=== PATIENT | female | born 1965 | race Caucasian/White ===

== ENCOUNTER 2016-09-27 17:45 | Inpatient (IN) | payer BC ==
[~2016-09-27] VITALS: Ht 154.9 cm; Wt 88.2 kg
[2016-09-27] MEDS ORDERED: SOD CHLORIDE 0.9% 1,000 ML IV STA (18:33)
[2016-09-27] MEDS ORDERED: ONDANSETRON 4 MG INJ IV STA (18:33)
[2016-09-27] MEDS ORDERED: morphine 4 MG/ML VIAL IV STA (18:33)
[2016-09-27] MEDS ORDERED: KETOROLAC 30 MG INJ IV STA (19:14)
[2016-09-27 19:21] LABS: ADD SCAN DIFF NO
[2016-09-27 19:31] LABS: BASOPHILS % 0.2 % (0.0-2.0); EOSINOPHILS % 0.1 % (0.0-7.0); HEMATOCRIT 44.7 % (37.0-47.0); HEMOGLOBIN 15.1 g/dl (12.0-16.0); LYMPHOCYTES # 0.7 10^3/ul (0.8-2.9); LYMPHOCYTES % 6.2 % (15.0-51.0); MEAN CORPUSCULAR HEMOGLOBIN 29.7 pg (29.0-33.0); MEAN CORPUSCULAR HGB CONC 33.8 g/dl (32.0-37.0); MEAN PLATELET VOLUME 9.5 fl (7.4-10.4); MONOCYTE # 0.7 10^3/ul (0.3-0.9); MONOCYTES % 6.2 % (0.0-11.0); NEUTROPHIL # 10.3 10^3/ul (1.6-7.5); PLATELET COUNT 359 10^3/UL (140-415); RED BLOOD COUNT 5.08 10^6/ul (4.20-5.40); RED CELL DISTRIBUTION WIDTH 12.4 % (11.5-14.5); WHITE BLOOD COUNT 11.8 10^3/ul (4.8-10.8)
--- NOTE | 2016-09-27 19:31 | RADRPT ---
PROCEDURE: Right Upper Quadrant Ultrasound. CLINICAL INDICATION: Abdominal Pain TECHNIQUE: Multiple real-time images were acquired of the patient's right upper quadrant abdomen a nd retroperitoneum utilizing a high resolution transducer. COMPARISON: None FINDINGS: The liver measures 16.3 cm, and demonstrates normal echogenicity. The main portal vein is patent wit h proper directional flow. There is no intrahepatic biliary ductal dilatation. The extrahepatic comm on bile duct measures 3 mm. There is cholelithiasis. There is no gallbladder wall thickening or pericholecystic fluid. The visualized pancreas is unremarkable. The right kidney measures 11.0 x 4.7 x 4.9 cm and demonstrates normal echotexture. There is no right renal calculus or hydronephrosis. The visualized abdominal aorta and IVC are grossly unremarkable. IMPRESSION: Mild hepatomegaly. Cholelithiasis without evidence of acute cholecystitis. Normal CBD. RPTAT: EE Physician Simin Date Time Electronically viewed and signed by Physician Simin on 09/27/2016 19:31 /
[2016-09-27 19:40] LABS: ADD UMIC YES; URINE BILIRUBIN (Dip) 1+ (NEGATIVE); URINE BLOOD (Dip) NEGATIVE (NEGATIVE); URINE COLOR AMBER (YELLOW); URINE GLUCOSE (Dip) NEGATIVE (NEGATIVE); URINE KETONES (Dip) 15 (NEGATIVE); URINE LEUKOCYTE ESTERASE (Dip) NEGATIVE (NEGATIVE); URINE NITRITE (Dip) NEGATIVE (NEGATIVE); URINE TOTAL PROTEIN (Dip) 1+ (NEGATIVE); URINE UROBILINOGEN (Dip) 1.0 E.U./dL (0.1-1.0)
[2016-09-27 19:46] LABS: ALBUMIN 4.9 g/dl (3.3-4.9)
[2016-09-27 19:47] LABS: CHLORIDE 99 mmol/L (97-110); POTASSIUM 3.8 mmol/L (3.5-5.1); SODIUM 142 mmol/L (135-144)
[2016-09-27] MEDS ORDERED: HYDROmorphONE 1 MG/ML SYG IV STA (19:47)
[2016-09-27 19:49] LABS: ALBUMIN/GLOBULIN RATIO 1.36; ALKALINE PHOSPHATASE 154 IU/L (42-121); ANION GAP 21 (8-16); BILIRUBIN,INDIRECT 2.9 mg/dl (0-1.1); BILIRUBIN,TOTAL 3.7 mg/dl (0.2-1.3); BLOOD UREA NITROGEN 11 mg/dl (7-20); CARBON DIOXIDE 26 mmol/L (21-31); CREATININE 0.73 mg/dl (0.44-1.00); TOTAL PROTEIN 8.5 g/dl (6.1-8.1)
[2016-09-27 19:50] LABS: ALANINE AMINOTRANSFERASE 875 IU/L (13-69); CALCIUM 9.7 mg/dl (8.4-10.2); GLUCOSE 173 mg/dl (70-220)
[2016-09-27 20:00] LABS: TROPONIN-I < 0.012 ng/ml (0.00-0.12)
[2016-09-27 20:11] LABS: ICTOTEST POSITIVE (NEGATIVE)
[2016-09-27 20:12] LABS: SQUAMOUS EPITHELIAL CELL,UR FEW; URINE RBCS NONE SEEN /HPF (0)
[2016-09-27 20:33] LABS: ASPARTATE AMINO TRANSFERASE 1187 IU/L (15-46)
--- NOTE | 2016-09-27 21:04 | RADRPT ---
PROCEDURE: CT abdomen and pelvis without contrast. CLINICAL INDICATION: Abdominal pain, vomiting TECHNIQUE: CT scan of the abdomen and pelvis without contrast was performed. The patient was scan iliana without intravenous contrast. 3-D coronal reformatted images were obtained from the axial [facility] e images. The calculated radiation dose measures 1114 mGy centimeters. The CTDI measures 21 mGy COMPARISON: None available FINDINGS: CT abdomen: Limited images through the lung bases appear clear. There is a small to moderate hiatal hernia. The liver is normal in size and density, without intrahepatic biliary dilatation. There is peripancreatic fat stranding, around the body and tail of the pancreas. There is fat stran ding through the left upper quadrant mesentery and small pockets of free fluid. There is a mildly t hickened appearance through the splenic flexure of the colon, which may be reactive. The gallbladd er appears within normal limits. The adrenal glands are symmetric and normal. The kidneys appear normal in size and contour. No renal calculus or hydronephrosis is visualized. There is no ascites or retroperitoneal lymphadenopathy. Visualized bowel loops appear within normal limits. There is an appendicolith at the appendix base. . CT pelvis: The urinary bladder appears normal. There is a right adnexal 4.2 cm low density structure, likely a n ovarian cyst. There is a left ovarian probable cyst, measuring 1.4 cm.. There is no abnormal pel otis mass or adenopathy. There is no pelvic free fluid. Visualized osseous structures appear unremarkable. IMPRESSION: 1. Fat stranding around the body and tail of the pancreas, most likely reflecting pancreatitis. Sm all associated intra-abdominal free fluid. No well-defined fluid collections to suggest abscess paramjit ntified. 2. Mild thickening through the splenic flexure of the colon, which may be reactive. 3. Appendicolith in the appendix. Otherwise unremarkable appearing appendix. 4. Bilateral adnexal probable ovarian cysts, up to 4.2 cm on the right. RPTAT: HBST .Chris Steward MD, MD Date Time Electronically viewed and signed by .Chris Steward MD, MD on 09/27/2016 21:04 .T/
[2016-09-27] MEDS ORDERED: PROG100C5 PO (21:46)
[2016-09-27] MEDS ORDERED: PRAS1TAB2 PO (21:51)
[2016-09-27] MEDS ORDERED: THY90 PO (21:53)
[2016-09-27] MEDS ORDERED: MELA3TAB29 PO (21:57)
[2016-09-27] MEDS ORDERED: ONDANSETRON 4 MG INJ IV PRN (22:00)
[2016-09-27] MEDS ORDERED: ACETAMINOPHEN 325 MG TAB PO PRN (22:00)
[2016-09-27] MEDS ORDERED: NACL 0.9% 3 ML SYG IV SCH (23:00)
[2016-09-27] MEDS ORDERED: morphine 10 MG INJ IV ONE (23:00)
--- NOTE | 2016-09-27 23:08 | ERA ---
ER Documentation Chief Complaint Date/Time DATE: 09/27/16 TIME: 22:51 Chief Complaint ABD PAIN SINCE LAST NIGHT AND GOT WORSE TODAY. VOMITING NO DIARRHEA. HPI 51-year-old female with no significant past medical history other than some hormonal imbalance presenting to the ER with pain since last night in her upper abdomen. She states the pain starts in her epigastrium, throbbing, radiating across her upper abdomen and across her mid back. The pain lasted for several hours last night with associated nonbloody and nonbilious vomiting. Her pain then subsided for a while and she was able to sleep. When she woke up this morning she did not feel well but did not really have any significant pain. Later on during the day, she started getting severe pain in her upper abdomen again, so she came in for evaluation. When she presented her pain was a 10 out of 10 but has improved with pain medication that was given by the PA prior to me seeing her. She denies any fever, chills, dysuria, chest pain, shortness of breath. She denies any significant Tylenol ingestion other than 2 pills this morning for her pain. No recent travel or history of hepatitis. ROS All systems reviewed and are negative except as per history of present illness. Medications Home Meds Reported Medications Melatonin (MELADOX) Unknown Strength Tablet.er, MG PO QHS, TAB 09/27/16 Thyroid ([place] Thyroid) 90 Mg Tab, 90 MG PO QAM, TAB TAKE 1.5 GRAIN-90MG 09/27/16 Prasterone (Dhea)/Calcium Carb (Dhea Tablet) 1 Each Tablet, 1 EACH PO QAM, TAB 09/27/16 Progesterone,Micronized* (Progesterone*) 100 Mg Capsule, 100 MG PO BID, CAP 09/27/16 Allergies Allergies: Coded Allergies: No Known Allergy (Unverified , 09/27/16) PMhx/Soc Medical and Surgical Hx: pt denies Medical Hx History of Surgery: Yes (nasal septum) Anesthesia Reaction: No Hx Neurological Disorder: No Hx Respiratory Disorders: No Hx Cardiac Disorders: No Hx Psychiatric Problems: No Hx Miscellaneous Medical Probl: Yes (sleep apnea) Hx Alcohol Use: No Hx Substance Use: No Hx Tobacco Use: No Smoking Status: Never smoker FmHx Family History: No diabetes Physical Exam Vitals Vital Signs Date Time Temp Pulse Resp B/P Pulse Ox O2 Delivery O2 Flow Rate FiO2 5/5/17 17:48 98.8 62 20 177/97 99 Physical Exam Const: Well-appearing, nontoxic, mild distress Head: Atraumatic Eyes: Normal Conjunctiva, no scleral icterus, PERRLA, EOMI ENT: Normal External Ears, Nose and Mouth. Neck: Full range of motion..~ No meningismus. Resp: Clear to auscultation bilaterally Cardio: Regular rate and rhythm, no murmurs Abd: Soft, moderately tender to palpation across her upper abdomen, negative Greenberg's sign, non distended. Normal bowel sounds Skin: No petechiae or rashes, no jaundice Back: No midline or flank tenderness Ext: No cyanosis, or edema Neur: Awake and alert Psych: Normal Mood and Affect Result Diagram: 09/27/16184809/27/161848 Results 24 hrs Laboratory Tests Test 09/27/16 18:49 White Blood Count 11.810^3/ul Red Blood Count 5.0810^6/ul Hemoglobin 15.1g/dl Hematocrit 44.7% Mean Corpuscular Volume 88.0fl Mean Corpuscular Hemoglobin 29.7pg Mean Corpuscular Hemoglobin Concent 33.8g/dl Red Cell Distribution Width 12.4% Platelet Count 13894^3/UL Mean Platelet Volume 9.5fl Neutrophils % 87.0% Lymphocytes % 6.2% Monocytes % 6.2% Eosinophils % 0.1% Basophils % 0.2% Nucleated Red Blood Cells % 0.0/100WBC Neutrophils # 10.310^3/ul Lymphocytes # 0.710^3/ul Monocytes # 0.710^3/ul Eosinophils # 0.010^3/ul Basophils # 0.010^3/ul Nucleated Red Blood Cells # 0.010^3/ul Urine Color MARY Urine Clarity CLEAR Urine pH 7.0 Urine Specific [place] 1.020 Urine Ketones 15 Urine Nitrite NEGATIVE Urine Bilirubin 1+ Urine Ictotest POSITIVE Urine Urobilinogen 1.0 E.U./dL Urine Leukocyte Esterase NEGATIVE Urine Microscopic RBC NONE SEEN/HPF Urine Microscopic WBC 0-2/HPF Urine Squamous Epithelial Cells FEW Urine Hemoglobin NEGATIVE Urine Glucose NEGATIVE% Urine Total Protein 1+ Sodium Level 142mmol/L Potassium Level 3.8mmol/L Chloride Level 99mmol/L Carbon Dioxide Level 26mmol/L Anion Gap 21 Blood Urea Nitrogen 11mg/dl Creatinine 0.73mg/dl Glucose Level 173mg/dl Calcium Level 9.7mg/dl Total Bilirubin 3.7mg/dl Direct Bilirubin 0.80mg/dl Indirect Bilirubin 2.9mg/dl Aspartate Amino Transf (AST/SGOT) 1187IU/L Alanine Aminotransferase (ALT/SGPT) 875IU/L Alkaline Phosphatase 154IU/L Troponin I < 0.012ng/ml Total Protein 8.5g/dl Albumin 4.9g/dl Globulin 3.60g/dl Albumin/Globulin Ratio 1.36 Lipase 05903P/L Current Medications Medications (Trade) Dose Ordered Sig/Jenna Route PRN Reason Start Time Stop Time Status Last Admin Dose Admin Sodium Chloride (NS) 1,000 ml @ 1,000 mls/hr Q1H STAT IV 09/27/16 18:33 09/27/16 19:32 DC 09/27/16 18:54 Morphine Sulfate (morphine) 4 mg ONCE STAT IV 09/27/16 18:33 09/27/16 18:35 DC 09/27/16 18:52 Ondansetron HCl (Zofran Inj) 4 mg ONCE STAT IV 09/27/16 18:33 09/27/16 18:35 DC 09/27/16 18:52 Ketorolac Tromethamine (Toradol) 30 mg ONCE STAT IV 09/27/16 19:14 09/27/16 19:15 DC 09/27/16 19:19 Hydromorphone HCl (Dilaudid) 1 mg ONCE STAT IV 09/27/16 19:47 09/27/16 19:48 DC 09/27/16 19:56 Ondansetron HCl (Zofran Inj) 4 mg BRIDGE ORDER PRN IV NAUSEA AND/OR VOMITING 09/27/16 22:00 09/28/16 21:59 Acetaminophen (Tylenol Tab) 650 mg ER BRIDGE PRN PO MILD PAIN/FEVER 09/27/16 22:00 09/28/16 21:59 Procedures/MDM EMERGENT LABS AND DIAGNOSTIC STUDIES: Lab Results above were reviewed and interpreted by me. CBC shows mild leukocytosis CMP shows significant elevation of her bilirubin, liver enzymes, and slight elevation of alk phos Lipase is significantly elevated Radiology Results as interpreted by Radiology below were reviewed by Sachi Morrow MD: Ultrasound abdomen: IMPRESSION: Mild hepatomegaly. Cholelithiasis without evidence of acute cholecystitis. Normal CBD. CT abdomen and pelvis: IMPRESSION: 1. Fat stranding around the body and tail of the pancreas, most likely reflecting pancreatitis. Small associated intra-abdominal free fluid. No well- defined fluid collections to suggest abscess identified. 2. Mild thickening through the splenic flexure of the colon, which may be reactive. 3. Appendicolith in the appendix. Otherwise unremarkable appearing appendix. 4. Bilateral adnexal probable ovarian cysts, up to 4.2 cm on the right. Initial Nursing notes reviewed. Previous Medical Records requested via the Electronic Health Record. EMERGENCY DEPARTMENT COURSE / MEDICAL DECISION MAKING: Patient is presenting with abdominal pain in the upper abdomen. She has stable vitals. Differential includes but is not limited to biliary colic, biliary obstruction, acute cholecystitis, pancreatitis, hepatitis, lower lobe pneumonia , gastritis, colitis, cardiac pathology, aortic dissection, ureterolithiasis, pyelonephritis. Labs were ordered to evaluate for above and were significant elevation of liver enzymes and lipase. This is suggestive of likely gallstone pancreatitis. She has lower risk for acute infectious hepatitis or pancreatitis. There is no CBD dilation on the ultrasound of her abdomen but she will need likely an MRCP and/or an ERCP for evaluation for choledocholithiasis. Patient will be kept n.p.o. on IV fluids. Her pain is controlled with IV pain medications. I spoke with the admitting doctor, who will consult GI and order MRCP. Accepting Care Team: Current data and ongoing care discussed. Time: Time of admission Primary Provider: Tai Consulting: none Outstanding Data: none Departure Diagnosis: Primary Impression: Acute pancreatitis Qualified Code: K85.90 - Acute pancreatitis, unspecified complication status, unspecified pancreatitis type Additional Impression: Acute hepatitis Condition: Serious MELIDA MORROW MD September 27, 2016 23:03
--- NOTE | 2016-09-27 23:10 | HP ---
Date/Time of Note Date/Time of Note DATE: 09/27/16 TIME: 22:53 Assessment/Plan VTE Prophylaxis VTE Prophylaxis Intervention: SCD's Lines/Catheters Central line still needed: No Urinary Cath still in place: No Assessment/Plan Chief Complaint/Hosp Course This is a 51-year-old female being admitted to the [facility] floor for: #1. Acute pancreatitis: Etiology at this time could be gallstones versus triglycerides. Mildly elevated white count. Patient denies any alcohol use. There is also possibility could be the patient's bioidentical hormones she may be taking. We will keep the patient n.p.o. normal saline at 150 cc an hour. Zofran for nausea, Dilaudid for pain control. CT was consistent with acute pink otitis gallbladder showed gallstones in the gallbladder however, bile duct was normal. LFTs that showed an obstructive pattern. At this time will order an MRCP. Consult GI for possible ERCP based on MRCP findings. #2 elevated LFTs: These appear to be an obstructive pattern likely secondary to gallstone. Ultrasound did show gallstones in the gallbladder however common bile duct was within normal values. Will evaluate further with an MRCP. Repeat LFTs in the a.m. Will also order hepatitis panel for completeness sake. May need surgery consult based on the clinical course. #3 sleep apnea: We will order CPAP for the patient in the setting of 12 #4: Bilateral ovarian cysts: Patient is being followed by OB as an outpatient #5 DVT GI prophylaxis: SCDs, H2 josé miguel. Patient is a full code Problems: HPI/ROS Admit Date/Time Admit Date/Time 09/27/2016 Hx of Present Illness Chief complaint: Abdominal pain 2 days This is a 51-year-old female who is coming in today to the emergency department with abdominal pain for 2 days. Patient states that on night she started having abdominal pain that radiated around to the back. Pain was sharp and 10 out of 10 in intensity. Prior to that she had eaten a lot of junk food throughout the day. Patient states that she took some Tylenol which gave her some mild relief. The pain continued on and she ended up vomiting multiple times. The pain did subside at some point but then it came back again today which brought her into the ER. Denies any chest pain or shortness of breath denies any fevers. Allergies: NKDA Medications: Bioidentical hormone ROS Const: Fatigue, vomiting Eyes : No pain discharge or redness or change in visual acuity ENT: No pain, sore throat, congestion, congestion, dysphagia or discharge Respiratory: No shortness of breath, cough, sputum, wheezing, or pleuritic pain Cardiovascular: No chest pain, palpitation, PND, or edema GI : As per HPI Genitourinary: No dysuria, hematuria, flank pain , discharge or CVA tenderness Musculoskeletal: No joint pain, back pain, neck pain, restricted range of motion in neck or joints Skin: No rash, bruising or hives Neuro: No headache, dizziness, syncope, seizure, focal weakness Endocrine: No polyuria, polydipsia, temperature intolerance Psych: No hallucination, depression, anxiety or suicidal ideation PMH/Family/Social Past Medical History Sleep apnea she wears a CPAP of the setting of 12, bilateral ovarian cysts Past Surgical History Deviated septum repair, D&C Family History Significant Family History: heart disease, diabetes, renal disease, other (Mom : Diabetes mellitus, end-stage renal disease dad: [place]) Social History Smoking Status: Never smoker Exam/Review of Systems Vital Signs Vitals Vital Signs Date Time Temp Pulse Resp B/P Pulse Ox O2 Delivery O2 Flow Rate FiO2 09/27/16 17:48 98.8 62 20 177/97 99 Exam Exam General: This is a obese female lying in bed in no apparent distress (she did receive pain medication prior to my exam) The patient is alert oriented -3 HEENT: Atraumatic, normocephalic. The pupils are equal, round and reactive. Extraocular motor are intact Neck: Supple with full range of motion. No rigidity or meningismus Chest: Nontender Lungs: Clear to auscultation bilaterally no crackles rales or wheezing Heart: Normal S1-S2, Regular rhythm and rate. No murmur, S3, or S4 Abdomen: Soft, tender to palpation at the epigastric area as well as a right upper quadrant, normal bowel sounds Extremities: Normal to inspection, no edema no cyanosis Neurologic: Normal mental status, speech normal, cranial nerves II through XII are intact, motor and sensory are intact, no focal weakness Additional Comments CT of the abdomen and pelvis IMPRESSION: 1. Fat stranding around the body and tail of the pancreas, most likely reflecting pancreatitis. Small associated intra-abdominal free fluid. No well- defined fluid collections to suggest abscess identified. 2. Mild thickening through the splenic flexure of the colon, which may be reactive. 3. Appendicolith in the appendix. Otherwise unremarkable appearing appendix. 4. Bilateral adnexal probable ovarian cysts, up to 4.2 cm on the right. Right upper quadrant ultrasound IMPRESSION: Mild hepatomegaly. Cholelithiasis without evidence of acute cholecystitis. Normal CBD. Labs Result Diagram: 09/27/16 1849 09/27/16 1849 Medications Medications Current Medications Morphine Sulfate (morphine) 6 mg ONCE ONCE IV ; Start 09/27/16 at 23:00; Stop at 23:01 MARTÍN MESA September 27, 2016 23:07
[2016-09-27 23:56] VITALS: Ht 154.9 cm; Wt 88.2 kg
[2016-09-28] VITALS: BP 138/80; PULSE 59; RESP 20
[2016-09-28] MEDS: SOD CHLORIDE 0.9% 1,000 ML IV SCH ×4 (00:18→20:55)
[2016-09-28] MEDS: FAMOTIDINE 20 MG INJ IV SCH ×3 (00:18→20:56)
[2016-09-28] MEDS: HYDROmorphONE 1 MG/ML SYG IV PRN ×5 (00:19→20:56)
[2016-09-28] MEDS ORDERED: HYDROmorphONE 1 MG/ML SYG IV ONE (03:18)
[2016-09-28 06:41] LABS: HAAIG REFLEX REFLEX FILED
[2016-09-28 06:42] LABS: ADD SCAN DIFF NO
[2016-09-28 06:45] LABS: BASOPHILS % 0.2 % (0.0-2.0); EOSINOPHILS % 0.3 % (0.0-7.0); HEMATOCRIT 37.6 % (37.0-47.0); HEMOGLOBIN 12.7 g/dl (12.0-16.0); LYMPHOCYTES # 1.2 10^3/ul (0.8-2.9); MEAN CORPUSCULAR HEMOGLOBIN 30.4 pg (29.0-33.0); MEAN CORPUSCULAR HGB CONC 33.8 g/dl (32.0-37.0); MEAN PLATELET VOLUME 9.6 fl (7.4-10.4); MONOCYTE # 0.8 10^3/ul (0.3-0.9); MONOCYTES % 7.2 % (0.0-11.0); NEUTROPHIL # 8.7 10^3/ul (1.6-7.5); PLATELET COUNT 281 10^3/UL (140-415); RED BLOOD COUNT 4.18 10^6/ul (4.20-5.40); RED CELL DISTRIBUTION WIDTH 12.5 % (11.5-14.5); WHITE BLOOD COUNT 10.8 10^3/ul (4.8-10.8)
[2016-09-28 07:11] LABS: ALBUMIN 3.8 g/dl (3.3-4.9); ALBUMIN/GLOBULIN RATIO 1.26; BILIRUBIN,DIRECT 0.3 mg/dl (0.00-0.20); BILIRUBIN,INDIRECT 3.2 mg/dl (0-1.1); BILIRUBIN,TOTAL 3.5 mg/dl (0.2-1.3); CALCIUM 8.8 mg/dl (8.4-10.2); CHOL/HDL RATIO 3.7 RATIO; CREATININE 0.63 mg/dl (0.44-1.00); POTASSIUM 3.7 mmol/L (3.5-5.1); TOTAL PROTEIN 6.8 g/dl (6.1-8.1)
[2016-09-28 07:42] VITALS: BP 151/74; RESP 16
[2016-09-28 07:59] LABS: HEPATITIS B CORE ANTIBODY NEGATIVE (NEGATIVE)
--- NOTE | 2016-09-28 08:48 | CONS ---
Date/Time of Note Date/Time of Note DATE: 09/28/16 TIME: 08:43 Assessment/Plan Assessment/Plan Additional Assessment/Plan Abdominal pain/nausea/vomiting Pancreatitis Rule out choledocholithiasis IVF Hydration Nausea and pain control NPO till pain free Review MRCP ERCP if clinically indicated, pt advised of R/B/A of procedure and she provides informed consent to proceed Review triglycerides Monitor LFTs, amylase, lipase May require surgery consult Sleep apnea Management per Primary Continue use of home CPAP Obesity Management per Primary Encourage weight loss Further recommendations depend on clinical course Patient seen in collaboration with Dr. Keyes Consultation Date/Type/Reason Admit Date/Time 09/27/2016 Type of Consultation: Gastroenterology Reason for Consultation Abdominal pain Hx of Present Illness Ms. Abdiaziz Verduzco is a 51-year-old woman that presented in the emergency room secondary to complaints of intense epigastric and right upper quadrant pain with nausea and nonbloody bilious vomiting that started on . Patient reports previous episode in May but lasted under a day. Patient states symptoms started abruptly and reports 10 out of 10 abdominal pain. Patient denies fever, chills, alcohol consumption, sick contacts, travel outside the [place], and diarrhea. At bedside patient denies abdominal pain secondary to administration of pain medication. Patient also reports history of bilateral ovarian cyst and notes right ovarian cyst at 5 cm. 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 Past Medical History Medical History: other (Sleep apnea, bilateral ovarian cyst) Social History Smoking Status: Never smoker Exam/Review of Systems Vital Signs Vitals Vital Signs Date Time Temp Pulse Resp B/P Pulse Ox O2 Delivery O2 Flow Rate FiO2 09/28/16 07:42 98.2 63 16 151/74 98 09/28/16 00:00 Room Air Intake and Output 09/27/16 09/27/16 09/28/16 15:00 23:00 07:00 Intake Total 850 ml Balance 850 ml Exam Constitutional: alert, oriented, well developed Psych: nl mood/affect Head: normocephalic Eyes: EOMI, nl conjunctiva, nl lids ENMT: nl external ears & nose, nl lips & teeth, nl nasal mucosa & septum Respiratory: clear to auscultation, normal air movement Cardiovascular: regular rate and rhythm Gastrointestinal: soft, non-tender Musculoskeletal: nl extremities to inspection 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 II-XII intact Results Result Diagram: 09/28/16 0558 09/28/16 0558 Results 24 hrs Laboratory Tests Test 09/27/16 18:49 09/28/16 05:58 White Blood Count 11.8 H 10.8 Red Blood Count 5.08 4.18 L Hemoglobin 15.1 12.7 Hematocrit 44.7 37.6 Mean Corpuscular Volume 88.0 90.0 Mean Corpuscular Hemoglobin 29.7 30.4 Mean Corpuscular Hemoglobin Concent 33.8 33.8 Red Cell Distribution Width 12.4 12.5 Platelet Count 359 281 # Mean Platelet Volume 9.5 9.6 Neutrophils % 87.0 H 81.0 H Lymphocytes % 6.2 L 11.0 L Monocytes % 6.2 7.2 Eosinophils % 0.1 0.3 Basophils % 0.2 0.2 Nucleated Red Blood Cells % 0.0 0.0 Neutrophils # 10.3 H 8.7 H Lymphocytes # 0.7 L 1.2 Monocytes # 0.7 0.8 Eosinophils # 0.0 0.0 Basophils # 0.0 0.0 Nucleated Red Blood Cells # 0.0 0.0 Urine Color MARY Urine Clarity CLEAR Urine pH 7.0 Urine Specific [place] 1.020 Urine Ketones 15 Urine Nitrite NEGATIVE Urine Bilirubin 1+ H Urine Ictotest POSITIVE Urine Urobilinogen 1.0 E.U./dL Urine Leukocyte Esterase NEGATIVE Urine Microscopic RBC NONE SEEN Urine Microscopic WBC 0-2 Urine Squamous Epithelial Cells FEW Urine Hemoglobin NEGATIVE Urine Glucose NEGATIVE Urine Total Protein 1+ H Sodium Level 142 140 Potassium Level 3.8 3.7 Chloride Level 99 104 Carbon Dioxide Level 26 28 Anion Gap 21 H 12 # Blood Urea Nitrogen 11 10 Creatinine 0.73 0.63 Glucose Level 173 109 # Calcium Level 9.7 8.8 Total Bilirubin 3.7 H 3.5 H Direct Bilirubin 0.80 H 0.30 #H Indirect Bilirubin 2.9 H 3.2 H Aspartate Amino Transf (AST/SGOT) 1187 H 563 H Alanine Aminotransferase (ALT/SGPT) 875 H 610 H Alkaline Phosphatase 154 H 122 H Troponin I < 0.012 Total Protein 8.5 H 6.8 # Albumin 4.9 3.8 # Globulin 3.60 H 3.00 Albumin/Globulin Ratio 1.36 1.26 Lipase 49732 H Pending Hemoglobin A1c 5.3 Triglycerides Level 62 Cholesterol Level 186 LDL Cholesterol, Calculated 124 HDL Cholesterol 50 Cholesterol/HDL Ratio 3.7 Hepatitis B Surface Antigen NEGATIVE Hepatitis B Core Total Antibody NEGATIVE Hepatitis C Antibody NEGATIVE Medications Medications Current Medications Sodium Chloride (NS) 1,000 ml @ 150 mls/hr Q6H40M IV Last administered on 05:48; Admin Dose 150 MLS/HR; Start 09/27/16 at 22:49 Ondansetron HCl (Zofran Inj) 4 mg Q6H PRN IV NAUSEA AND/OR VOMITING; Start 09/27 at 23:00 Hydromorphone HCl (Dilaudid) 0.5 mg Q4H PRN IV SEVERE PAIN LEVEL 7-10 Last administered on 09/28/16 05:54; Admin Dose 0.5 MG; Start 09/27/16 at 23:00 Famotidine (Pepcid Iv) 20 mg Q12 IV Last administered on 09/28/16 00:18; Admin Dose 20 MG; Start 09/27/16 at 23:00 NICKO RODRIGEZ September 28, 2016 08:48
--- NOTE | 2016-09-28 10:55 | PN ---
DATE: 09/28/2016 TIME OF EVALUATION: 10:15 a.m. SUBJECTIVE DATA: Complains of minimal abdominal pain. Denies any nausea, vomiting. OBJECTIVE DATA: VITAL SIGNS: Temperature 98.2, pulse is 60, respiratory rate 16, blood pressure 151/74, oxygen saturation 98% on room air. GENERAL: This is an obese female lying in bed in no apparent distress. HEENT: Head normocephalic and atraumatic. Eyes: Anicteric sclerae. Conjunctivae clear. ENT: Nasal septum is midline. Oral mucosa is dry. NECK: Supple. No JVD noticed. RESPIRATORY: Bilaterally clear to auscultation. No adventitious breath sounds heard. No use of accessory muscles of respiration. CARDIAC: Regular rate and rhythm. No murmurs. ABDOMEN: Soft. Diffuse tenderness. Bowel sounds hypoactive in all 4 quadrants. GENITOURINARY: Deferred. EXTREMITIES: No cyanosis, no clubbing, no edema. Peripheral pulses are palpable. NEUROLOGIC: The patient is awake, alert and oriented. Cranial nerves are grossly intact. LABORATORY AND DIAGNOSTIC DATA: WBC is 10.8, hemoglobin 12.7, hematocrit 37.6, platelet count 281. Sodium 140, potassium 3.7, chloride 104, carbon dioxide 20 , anion gap 12, BUN 10, creatinine 0.66, glucose 109, calcium 8.8, total bilirubin 3.5, direct bilirubin 0.30, indirect bilirubin 3.2. ASSESSMENT AND PLAN: 1. Acute pancreatitis. Most probably gallstone pancreatitis. The patient is not a drinker. The patient has no underlying hypertriglyceridemia. The patient 's gallbladder ultrasound showing cholelithiasis. The patient will be kept n.p.o. The patient being followed by gastroenterology. MRCP ordered. General surgery consult will also be called on this patient. 2. Obstructive sleep apnea. Continue CPAP. 3. Transaminitis with hyperbilirubinemia, most probably secondary to #1. We will avoid nephrotoxic medications. Trend liver function tests. 4. Fluid, electrolytes and nutrition. Continue IV fluids. N.p.o. 5. Deep venous thrombosis prophylaxis with bilateral sequential compression devices. 6. Gastrointestinal prophylaxis. Histamine 2 receptor blockers. PLAN: Continue n.p.o. Continue IV fluids. Continue pain control. Await MRCP. The case discussed with Dr. Alford. General surgery consult called. CASTRO ALFORD MD AM/MEL Conf#: [id number] MINNA#: [id number] UMA
[2016-09-28] MEDS ORDERED: hydrALAzine 20 MG INJ IV PRN (11:00)
--- NOTE | 2016-09-28 11:08 | CONS ---
Date/Time of Note Date/Time of Note DATE: 09/28/16 TIME: 11:01 Assessment/Plan Assessment/Plan Chief Complaint/Hosp Course 51-year-old female with gallstone pancreatitis * Continue n.p.o., IV fluid hydration, pain control * Elevated lipase level. Continue to monitor * Elevated LFTs. Rule out choledocholithiasis. Recommend MRCP * Ultimately I would recommend laparoscopic cholecystectomy; possible open as definitive treatment once lipase levels are near normalized to prevent further recurrence of gallstone pancreatitis. * I discussed this with the patient in detail. At this time she is refusing surgery. I discussed the risks of both operative and nonoperative management. She fully understands and continues to refuse surgery at this time. Problems: Consultation Date/Type/Reason Admit Date/Time 09/27/2016 Date of Consultation: September 28, 2016 Type of Consultation: GENERAL SURGERY Reason for Consultation Gallstone pancreatitis Hx of Present Illness The patient is an obese 51-year-old female who initially started experiencing epigastric abdominal pain 2 days ago. Pain radiated to the back and bilateral upper quadrants. Over the course of the next 24 hours the pain became more localized towards the epigastrium and worsening in intensity. She also had nausea and nonbilious emesis. This prompted her to come to the emergency room. She denies any fever but does report chills. She denies any diarrhea/constipation. She reports 2 similar episodes of pain 5-6 months ago which eventually resolved. On arrival to the emergency room and ultrasound of the abdomen showed cholelithiasis. A CT scan of the abdomen and pelvis showed findings consistent with acute pancreatitis. The patient's lipase was approximately 34,000 on admission. Her liver function tests and total bilirubin level were also elevated. Currently she is comfortable in bed and reports minimal epigastric pain which is been controlled with IV narcotic pain medication. A 14 point review of systems was conducted and was negative except for that which is mentioned in HPI Past Medical History Sleep apnea, bilateral ovarian cysts Medical History: other (Sleep apnea, bilateral ovarian cyst) Past Surgical History Surgery for deviated septum Family History Significant Family History: no pertinent family hx Social History Smoking Status: Never smoker Exam/Review of Systems Vital Signs Vitals Vital Signs Date Time Temp Pulse Resp B/P Pulse Ox O2 Delivery O2 Flow Rate FiO2 09/28/16 07:42 98.2 63 16 151/74 98 09/28/16 00:00 Room Air Intake and Output 09/27/16 09/27/16 09/28/16 15:00 23:00 07:00 Intake Total 850 ml Balance 850 ml Exam GENERAL: Awake, alert, oriented x 3. No acute distress. SKIN: No jaundice. HEENT: PERRLA, EOMI, No Scleral Icterus NECK: Supple without JVD CARDIOVASCULAR: S1S2, regular rate and rhythm. No murmurs appreciated. RESPIRATORY: Clear to auscultation bilaterally. ABDOMEN: Soft, bowel sounds present, nondistended, there is mild epigastric tenderness to palpation. There is minimal right upper quadrant tenderness to palpation. There is no evidence of rebound or guarding. EXTREMITIES: Free range of motion x 4. No cyanosis, edema, or clubbing. NEUROLOGIC: Cranial nerves II-XII are intact. Sensation is intact grossly. Results Result Diagram: 09/28/16 0558 09/28/16 0558 Results 24 hrs Laboratory Tests Test 09/27/16 18:49 09/28/16 05:58 White Blood Count 11.8 H 10.8 Red Blood Count 5.08 4.18 L Hemoglobin 15.1 12.7 Hematocrit 44.7 37.6 Mean Corpuscular Volume 88.0 90.0 Mean Corpuscular Hemoglobin 29.7 30.4 Mean Corpuscular Hemoglobin Concent 33.8 33.8 Red Cell Distribution Width 12.4 12.5 Platelet Count 359 281 # Mean Platelet Volume 9.5 9.6 Neutrophils % 87.0 H 81.0 H Lymphocytes % 6.2 L 11.0 L Monocytes % 6.2 7.2 Eosinophils % 0.1 0.3 Basophils % 0.2 0.2 Nucleated Red Blood Cells % 0.0 0.0 Neutrophils # 10.3 H 8.7 H Lymphocytes # 0.7 L 1.2 Monocytes # 0.7 0.8 Eosinophils # 0.0 0.0 Basophils # 0.0 0.0 Nucleated Red Blood Cells # 0.0 0.0 Urine Color MARY Urine Clarity CLEAR Urine pH 7.0 Urine Specific [place] 1.020 Urine Ketones 15 Urine Nitrite NEGATIVE Urine Bilirubin 1+ H Urine Ictotest POSITIVE Urine Urobilinogen 1.0 E.U./dL Urine Leukocyte Esterase NEGATIVE Urine Microscopic RBC NONE SEEN Urine Microscopic WBC 0-2 Urine Squamous Epithelial Cells FEW Urine Hemoglobin NEGATIVE Urine Glucose NEGATIVE Urine Total Protein 1+ H Sodium Level 142 140 Potassium Level 3.8 3.7 Chloride Level 99 104 Carbon Dioxide Level 26 28 Anion Gap 21 H 12 # Blood Urea Nitrogen 11 10 Creatinine 0.73 0.63 Glucose Level 173 109 # Calcium Level 9.7 8.8 Total Bilirubin 3.7 H 3.5 H Direct Bilirubin 0.80 H 0.30 #H Indirect Bilirubin 2.9 H 3.2 H Aspartate Amino Transf (AST/SGOT) 1187 H 563 H Alanine Aminotransferase (ALT/SGPT) 875 H 610 H Alkaline Phosphatase 154 H 122 H Troponin I < 0.012 Total Protein 8.5 H 6.8 # Albumin 4.9 3.8 # Globulin 3.60 H 3.00 Albumin/Globulin Ratio 1.36 1.26 Lipase 23588 H 9821 H Hemoglobin A1c 5.3 Triglycerides Level 62 Cholesterol Level 186 LDL Cholesterol, Calculated 124 HDL Cholesterol 50 Cholesterol/HDL Ratio 3.7 Hepatitis B Surface Antigen NEGATIVE Hepatitis B Core Total Antibody NEGATIVE Hepatitis C Antibody NEGATIVE Medications Medications Current Medications Sodium Chloride (NS) 1,000 ml @ 150 mls/hr Q6H40M IV Last administered on 05:48; Admin Dose 150 MLS/HR; Start 09/27/16 at 22:49 Ondansetron HCl (Zofran Inj) 4 mg Q6H PRN IV NAUSEA AND/OR VOMITING; Start 09/27 at 23:00 Hydromorphone HCl (Dilaudid) 0.5 mg Q4H PRN IV SEVERE PAIN LEVEL 7-10 Last administered on 09/28/16 10:10; Admin Dose 0.5 MG; Start 09/27/16 at 23:00 Famotidine (Pepcid Iv) 20 mg Q12 IV Last administered on 09/28/16 09:48; Admin Dose 20 MG; Start 09/27/16 at 23:00 Hydralazine HCl (Apresoline) 10 mg Q6H PRN IV SbP>160; Start 09/28/16 at 11:00 Procedures Procedures PROCEDURE: CT abdomen and pelvis without contrast. CLINICAL INDICATION: Abdominal pain, vomiting TECHNIQUE: CT scan of the abdomen and pelvis without contrast was performed. The patient was scanned without intravenous contrast. 3-D coronal reformatted images were obtained from the axial source images. The calculated radiation dose measures 1114 mGy centimeters. The CTDI measures 21 mGy COMPARISON: None available FINDINGS: CT abdomen: Limited images through the lung bases appear clear. There is a small to moderate hiatal hernia. The liver is normal in size and density, without intrahepatic biliary dilatation. There is peripancreatic fat stranding, around the body and tail of the pancreas. There is fat stranding through the left upper quadrant mesentery and small pockets of free fluid. There is a mildly thickened appearance through the splenic flexure of the colon, which may be reactive. The gallbladder appears within normal limits. The adrenal glands are symmetric and normal. The kidneys appear normal in size and contour. No renal calculus or hydronephrosis is visualized. There is no ascites or retroperitoneal lymphadenopathy. Visualized bowel loops appear within normal limits. There is an appendicolith at the appendix base.. CT pelvis: The urinary bladder appears normal. There is a right adnexal 4.2 cm low density structure, likely an ovarian cyst. There is a left ovarian probable cyst, measuring 1.4 cm.. There is no abnormal pelvic mass or adenopathy. There is no pelvic free fluid. Visualized osseous structures appear unremarkable. IMPRESSION: 1. Fat stranding around the body and tail of the pancreas, most likely reflecting pancreatitis. Small associated intra-abdominal free fluid. No well- defined fluid collections to suggest abscess identified. 2. Mild thickening through the splenic flexure of the colon, which may be reactive. 3. Appendicolith in the appendix. Otherwise unremarkable appearing appendix. 4. Bilateral adnexal probable ovarian cysts, up to 4.2 cm on the right. RPTAT: HBST .Chris Steward MD, Date Time Electronically viewed and signed by .Chris Steward MD, on 09/27/2016 21:04 .T/ CC: KAYCEE CINTRON PA-C, MICHAEL A. MD September 28, 2016 11:08
[2016-09-28] MEDS ORDERED: HYDROmorphONE 1 MG/ML SYG IV STA (11:28)
[2016-09-28 16:08] VITALS: BP 133/64; PULSE 76
--- NOTE | 2016-09-28 19:00 | RADRPT ---
PROCEDURE: MRCP. CLINICAL INDICATION: Elevated liver function tests. TECHNIQUE: MRCP was performed. The following sequences were obtained: Three plane gradient echo localizers, coronal gradient echo images, breath hold axial T2-weighted fat saturation images, kiarra nal T2-weighted images, axial 3-D LAVA images, axial T2-weighted breath hold fast spin echo images, and 3-D coronal rotating MIP images of the biliary tree. COMPARISON: CT scan of the abdomen and pelvis dated 09/27/2016 which demonstrated acute pancreatit is. Right upper quadrant abdomen ultrasound dated 09/27/2016. FINDINGS: The liver is normal in size. There is normal signal intensity within the liver. There is no focal hepatic lesion. The spleen is normal in size and homogeneous in signal intensity. Gallstones visualized on ultrasound dated 09/27/2016 are not well seen with this MRI. The bile ducts are normal with no biliary dilatation or filling defect to suggest stone. The pancreatic duct is grossly normal. The pancreas is enlarged and there is surrounding mesenteric edema and small amount of fluid consistent with acute pancreatitis. The kidneys are grossly normal. The abdominal aorta is not dilated. IMPRESSION: 1. Acute pancreatitis. 2. Gallstone seen on prior ultrasound are not visualized on the MRI. 3. Normal bile ducts. 4. Otherwise unremarkable study. RPTAT: QQ .Kike Castanon MD, Date Time Electronically viewed and signed by .Kike Castanon MD, on 09/28/2016 19:00 .R/
[2016-09-28 19:50] VITALS: BP 141/84; RESP 18
[2016-09-28] MEDS: ONDANSETRON 4 MG INJ IV PRN (21:01)
[2016-09-29] MEDS: SOD CHLORIDE 0.9% 1,000 ML IV SCH ×4 (02:00→22:20)
[2016-09-29] MEDS: HYDROmorphONE 1 MG/ML SYG IV PRN ×6 (02:01→23:55)
[2016-09-29 05:50] LABS: ADD SCAN DIFF NO
[2016-09-29 06:00] LABS: BASOPHILS % 0.3 % (0.0-2.0); EOSINOPHILS % 0.3 % (0.0-7.0); HEMATOCRIT 35.1 % (37.0-47.0); HEMOGLOBIN 11.7 g/dl (12.0-16.0); LYMPHOCYTES % 8.3 % (15.0-51.0); MEAN CORPUSCULAR HEMOGLOBIN 30.2 pg (29.0-33.0); MEAN CORPUSCULAR HGB CONC 33.3 g/dl (32.0-37.0); MEAN CORPUSCULAR VOLUME 90.7 fl (82.0-101.0); MEAN PLATELET VOLUME 9.7 fl (7.4-10.4); MONOCYTE # 0.9 10^3/ul (0.3-0.9); MONOCYTES % 7.8 % (0.0-11.0); NEUTROPHIL # 9.9 10^3/ul (1.6-7.5); NEUTROPHILS % 82.8 % (39.0-77.0); PLATELET COUNT 223 10^3/UL (140-415); RED BLOOD COUNT 3.87 10^6/ul (4.20-5.40); RED CELL DISTRIBUTION WIDTH 12.4 % (11.5-14.5)
[2016-09-29 06:23] LABS: ALBUMIN 3.4 g/dl (3.3-4.9); ALBUMIN/GLOBULIN RATIO 1.21; BILIRUBIN,INDIRECT 2.2 mg/dl (0-1.1); BILIRUBIN,TOTAL 2.2 mg/dl (0.2-1.3); CALCIUM 8.3 mg/dl (8.4-10.2); CREATININE 0.59 mg/dl (0.44-1.00); POTASSIUM 3.7 mmol/L (3.5-5.1); TOTAL PROTEIN 6.2 g/dl (6.1-8.1)
[2016-09-29 06:28] LABS: MAGNESIUM 1.7 mg/dl (1.7-2.5); PHOSPHORUS 3.6 mg/dl (2.5-4.9)
[2016-09-29 07:25] VITALS: BP 124/57; RESP 19
[2016-09-29] MEDS: FAMOTIDINE 20 MG INJ IV SCH ×2 (09:19→21:04)
--- NOTE | 2016-09-29 09:33 | PN ---
Date/Time of Note Date/Time of Note DATE: 09/29/16 TIME: 09:33 Assessment/Plan VTE Prophylaxis VTE Prophylaxis Intervention: SCD's Lines/Catheters IV [facility]from [facility]): Peripheral IV Urinary Cath still in place: No Assessment/Plan Chief Complaint/Hosp Course 1. Acute pancreatitis. Most probably gallstone pancreatitis. The patient is not a drinker. The patient has no underlying hypertriglyceridemia. The patient 's gallbladder ultrasound showing cholelithiasis. The patient will be kept n.p.o. The patient being followed by gastroenterology. MRCP negative for any choledocholithiasis. General surgery evaluated the patient. 2. Obstructive sleep apnea. Continue CPAP. 3. Transaminitis with hyperbilirubinemia, most probably secondary to #1. Will avoid nephrotoxic medications. Trend liver function tests. 4. Fluid, electrolytes and nutrition. Continue IV fluids. N.p.o. 5. Deep venous thrombosis prophylaxis with bilateral sequential compression devices. 6. Gastrointestinal prophylaxis. Histamine 2 receptor blockers. PLAN: Continue n.p.o. Continue IV fluids. Continue pain control. Trend pancreatic enzymes. Case discussed with Dr. Teixeira. Problems: Subjective 24 Hr Interval Summary Free Text/Dictation Complains of abdominal pain. Exam/Review of Systems Vital Signs Vitals Vital Signs Date Time Temp Pulse Resp B/P Pulse Ox O2 Delivery O2 Flow Rate FiO2 09/29/16 07:25 99.4 88 19 124/57 93 09/28/16 00:00 Room Air Intake and Output 09/28/16 09/28/16 09/29/16 15:00 23:00 07:00 Intake Total 1000 ml 950 ml 1225 ml Balance 1000 ml 950 ml 1225 ml Exam GENERAL: This is an obese female lying in bed in no apparent distress. HEENT: Head normocephalic and atraumatic. Eyes: Anicteric sclerae. Conjunctivae clear. ENT: Nasal septum is midline. Oral mucosa is dry. NECK: Supple. No JVD noticed. RESPIRATORY: Bilaterally clear to auscultation. No adventitious breath sounds heard. No use of accessory muscles of respiration. CARDIAC: Regular rate and rhythm. No murmurs. ABDOMEN: Soft. Diffuse tenderness. Bowel sounds hypoactive in all 4 quadrants. GENITOURINARY: Deferred. EXTREMITIES: No cyanosis, no clubbing, no edema. Peripheral pulses are palpable. NEUROLOGIC: The patient is awake, alert and oriented. Cranial nerves are grossly intact. Results Result Diagram: 09/29/16 0500 09/29/16 0500 Results 24 hrs Laboratory Tests Test 09/29/16 05:00 White Blood Count 12.0 H Red Blood Count 3.87 L Hemoglobin 11.7 L Hematocrit 35.1 L Mean Corpuscular Volume 90.7 Mean Corpuscular Hemoglobin 30.2 Mean Corpuscular Hemoglobin Concent 33.3 Red Cell Distribution Width 12.4 Platelet Count 223 # Mean Platelet Volume 9.7 Neutrophils % 82.8 H Lymphocytes % 8.3 L Monocytes % 7.8 Eosinophils % 0.3 Basophils % 0.3 Nucleated Red Blood Cells % 0.0 Neutrophils # 9.9 H Lymphocytes # 1.0 Monocytes # 0.9 Eosinophils # 0.0 Basophils # 0.0 Nucleated Red Blood Cells # 0.0 Sodium Level 137 Potassium Level 3.7 Chloride Level 107 Carbon Dioxide Level 25 Anion Gap 9 Blood Urea Nitrogen 9 Creatinine 0.59 Glucose Level 82 Calcium Level 8.3 L Phosphorus Level 3.6 Magnesium Level 1.7 Total Bilirubin 2.2 H Direct Bilirubin 0.00 # Indirect Bilirubin 2.2 H Aspartate Amino Transf (AST/SGOT) 150 H Alanine Aminotransferase (ALT/SGPT) 357 H Alkaline Phosphatase 107 Total Protein 6.2 Albumin 3.4 Globulin 2.80 Albumin/Globulin Ratio 1.21 Amylase Level 427 H Lipase 637 H Thyroid Stimulating Hormone (TSH) < 0.015 L Free Thyroxine 0.82 Medications Medications Current Medications Sodium Chloride (NS) 1,000 ml @ 150 mls/hr Q6H40M IV Last administered on 09:19; Admin Dose 150 MLS/HR; Start 09/27/16 at 22:49 Ondansetron HCl (Zofran Inj) 4 mg Q6H PRN IV NAUSEA AND/OR VOMITING Last administered on 09/28/16 21:01; Admin Dose 4 MG; Start 09/27/16 at 23:00 Famotidine (Pepcid Iv) 20 mg Q12 IV Last administered on 09/29/16 09:19; Admin Dose 20 MG; Start 09/27/16 at 23:00 Hydralazine HCl (Apresoline) 10 mg Q6H PRN IV SbP>160; Start 09/28/16 at 11:00 Hydromorphone HCl (Dilaudid) 1 mg Q4H PRN IV SEVERE PAIN LEVEL 7-10 Last administered on 09/29/16 06:04; Admin Dose 1 MG; Start 09/28/16 at 15:00 CASTRO CAMEJO NP September 29, 2016 09:33
--- NOTE | 2016-09-29 09:40 | CONS ---
Date/Time of Note Date/Time of Note DATE: 09/29/16 TIME: 09:36 Assessment/Plan Assessment/Plan Chief Complaint/Hosp Course Ms. Abdiaziz Verduzco is a 51-year-old woman that presented in the emergency room secondary to complaints of intense epigastric and right upper quadrant pain with nausea and nonbloody bilious vomiting that started on . Patient reports previous episode in May but lasted under a day. Patient states symptoms started abruptly and reports 10 out of 10 abdominal pain. Patient denies fever, chills, alcohol consumption, sick contacts, travel outside the [place], and diarrhea. At bedside patient denies abdominal pain secondary to administration of pain medication. Patient also reports history of bilateral ovarian cyst and notes right ovarian cyst at 5 cm. 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 Problems: Additional Assessment/Plan Abdominal pain/nausea/vomiting Pancreatitis Rule out choledocholithiasis IVF Hydration Nausea and pain control Start trial of clears MRCP: 1. Acute pancreatitis. 2. Gallstone seen on prior ultrasound are not visualized on the MRI. 3. Normal bile ducts. 4. Otherwise unremarkable study. ERCP not clinically indicated Monitor LFTs, amylase, lipase Surgery following Sleep apnea Management per Primary Continue use of home CPAP Obesity Management per Primary Encourage weight loss Further recommendations depend on clinical course Patient seen in collaboration with Dr. Keyes Consultation Date/Type/Reason Admit Date/Time September 27, 2016 at 21:33 Initial Consult Date 09/28/16 Type of Consultation: Gastroenterology Reason for Consultation Pancreatitis 24 HR Interval Summary Free Text/Dictation Patient report reports dull left side abdominal pain Denies nausea MRCP negative We will start trial of clears at dinnertime Exam/Review of Systems Vital Signs Vitals Vital Signs Date Time Temp Pulse Resp B/P Pulse Ox O2 Delivery O2 Flow Rate FiO2 09/29/16 07:25 99.4 88 19 124/57 93 09/28/16 00:00 Room Air Intake and Output 09/28/16 09/28/16 09/29/16 15:00 23:00 07:00 Intake Total 1000 ml 950 ml 1225 ml Balance 1000 ml 950 ml 1225 ml Exam Constitutional: alert, oriented, well developed Psych: nl mood/affect Head: normocephalic Eyes: EOMI, nl conjunctiva, nl lids ENMT: nl external ears & nose, nl lips & teeth, nl nasal mucosa & septum Respiratory: clear to auscultation, normal air movement Cardiovascular: regular rate and rhythm Gastrointestinal: soft, non-tender Musculoskeletal: nl extremities to inspection Neurological: ICE CREAM SERVER II-XII intact Results Result Diagram: 09/29/16 0500 09/29/16 0500 Results 24 hrs Laboratory Tests Test 09/29/16 05:00 White Blood Count 12.0 H Red Blood Count 3.87 L Hemoglobin 11.7 L Hematocrit 35.1 L Mean Corpuscular Volume 90.7 Mean Corpuscular Hemoglobin 30.2 Mean Corpuscular Hemoglobin Concent 33.3 Red Cell Distribution Width 12.4 Platelet Count 223 # Mean Platelet Volume 9.7 Neutrophils % 82.8 H Lymphocytes % 8.3 L Monocytes % 7.8 Eosinophils % 0.3 Basophils % 0.3 Nucleated Red Blood Cells % 0.0 Neutrophils # 9.9 H Lymphocytes # 1.0 Monocytes # 0.9 Eosinophils # 0.0 Basophils # 0.0 Nucleated Red Blood Cells # 0.0 Sodium Level 137 Potassium Level 3.7 Chloride Level 107 Carbon Dioxide Level 25 Anion Gap 9 Blood Urea Nitrogen 9 Creatinine 0.59 Glucose Level 82 Calcium Level 8.3 L Phosphorus Level 3.6 Magnesium Level 1.7 Total Bilirubin 2.2 H Direct Bilirubin 0.00 # Indirect Bilirubin 2.2 H Aspartate Amino Transf (AST/SGOT) 150 H Alanine Aminotransferase (ALT/SGPT) 357 H Alkaline Phosphatase 107 Total Protein 6.2 Albumin 3.4 Globulin 2.80 Albumin/Globulin Ratio 1.21 Amylase Level 427 H Lipase 637 H Thyroid Stimulating Hormone (TSH) < 0.015 L Free Thyroxine 0.82 Medications Medications Current Medications Sodium Chloride (NS) 1,000 ml @ 150 mls/hr Q6H40M IV Last administered on 09:19; Admin Dose 150 MLS/HR; Start 09/27/16 at 22:49 Ondansetron HCl (Zofran Inj) 4 mg Q6H PRN IV NAUSEA AND/OR VOMITING Last administered on 09/28/16 21:01; Admin Dose 4 MG; Start 09/27/16 at 23:00 Famotidine (Pepcid Iv) 20 mg Q12 IV Last administered on 09/29/16 09:19; Admin Dose 20 MG; Start 09/27/16 at 23:00 Hydralazine HCl (Apresoline) 10 mg Q6H PRN IV SbP>160; Start 09/28/16 at 11:00 Hydromorphone HCl (Dilaudid) 1 mg Q4H PRN IV SEVERE PAIN LEVEL 7-10 Last administered on 09/29/16 06:04; Admin Dose 1 MG; Start 09/28/16 at 15:00 NICKO RODRIGEZ September 29, 2016 09:40
--- NOTE | 2016-09-29 15:07 | PN ---
Date/Time of Note Date/Time of Note DATE: 09/29/16 TIME: 15:05 Assessment/Plan Lines/Catheters IV Catheter Type (from [facility]): Peripheral IV Rewin in Place (from [facility]): No Assessment/Plan Assessment/Plan 51-year-old female with gallstone pancreatitis * Continue n.p.o., IV fluid hydration, pain control * Lipase level trending down towards near normal levels. Continue to monitor * Elevated LFTs, however, trending down. * MRCP negative for choledocholithiasis. Continue to monitor LFTs. * Ultimately I would recommend laparoscopic cholecystectomy; possible open as definitive treatment once lipase levels are near normalized to prevent further recurrence of gallstone pancreatitis. * I discussed this with the patient in detail. At this time she continues to refuse surgery. I discussed the risks of both operative and nonoperative management. She fully understands and continues to refuse surgery at this time. * Continue medical management Subjective 24 Hr Interval Summary Still reports epigastric and left upper quadrant abdominal pain. Denies right upper quadrant abdominal pain. Afebrile. Exam/Review of Systems Vital Signs Vitals Vital Signs Date Time Temp Pulse Resp B/P Pulse Ox O2 Delivery O2 Flow Rate FiO2 09/29/16 07:25 99.4 88 19 124/57 93 09/28/16 00:00 Room Air Intake and Output 09/28/16 09/28/16 09/29/16 15:00 23:00 07:00 Intake Total 1000 ml 950 ml 1225 ml Balance 1000 ml 950 ml 1225 ml Exam Free Text/Dictation GENERAL: Awake, alert, oriented x 3. No acute distress. SKIN: No jaundice. HEENT: PERRLA, EOMI, No Scleral Icterus CARDIOVASCULAR: S1S2, regular rate and rhythm. No murmurs appreciated. RESPIRATORY: Clear to auscultation bilaterally. ABDOMEN: Soft, bowel sounds present, nondistended, there is mild epigastric tenderness to palpation. There is no right upper quadrant tenderness to palpation. There is no evidence of rebound or guarding. EXTREMITIES: Free range of motion x 4. No cyanosis, edema, or clubbing. Results Result Diagram: 09/29/16 0500 09/29/16 0500 NASH EL MD September 29, 2016 15:07
[2016-09-29 19:41] VITALS: BP 138/68; RESP 18
[2016-09-30] MEDS: ONDANSETRON 4 MG INJ IV PRN
[2016-09-30] MEDS: HYDROmorphONE 1 MG/ML SYG IV PRN ×4 (04:03→22:07)
[2016-09-30] MEDS: SOD CHLORIDE 0.9% 1,000 ML IV SCH ×5 (05:34→23:43)
[2016-09-30 06:01] LABS: ADD SCAN DIFF NO
[2016-09-30 06:15] LABS: BASOPHILS % 0.2 % (0.0-2.0); EOSINOPHILS % 0.3 % (0.0-7.0); HEMATOCRIT 32.1 % (37.0-47.0); HEMOGLOBIN 10.7 g/dl (12.0-16.0); LYMPHOCYTES # 0.9 10^3/ul (0.8-2.9); LYMPHOCYTES % 6.7 % (15.0-51.0); MEAN CORPUSCULAR HEMOGLOBIN 30.1 pg (29.0-33.0); MEAN CORPUSCULAR HGB CONC 33.3 g/dl (32.0-37.0); MEAN CORPUSCULAR VOLUME 90.4 fl (82.0-101.0); MEAN PLATELET VOLUME 9.7 fl (7.4-10.4); MONOCYTE # 1.2 10^3/ul (0.3-0.9); MONOCYTES % 8.8 % (0.0-11.0); NEUTROPHIL # 10.9 10^3/ul (1.6-7.5); NEUTROPHILS % 83.5 % (39.0-77.0); PLATELET COUNT 214 10^3/UL (140-415); RED BLOOD COUNT 3.55 10^6/ul (4.20-5.40); RED CELL DISTRIBUTION WIDTH 12.1 % (11.5-14.5); WHITE BLOOD COUNT 13.1 10^3/ul (4.8-10.8)
[2016-09-30 06:38] LABS: MAGNESIUM 1.6 mg/dl (1.7-2.5); PHOSPHORUS 2.9 mg/dl (2.5-4.9)
[2016-09-30 06:51] LABS: ALBUMIN/GLOBULIN RATIO 1.25; BILIRUBIN,INDIRECT 2.4 mg/dl (0-1.1); BILIRUBIN,TOTAL 2.4 mg/dl (0.2-1.3); CALCIUM 8.1 mg/dl (8.4-10.2); CREATININE 0.56 mg/dl (0.44-1.00); POTASSIUM 3.7 mmol/L (3.5-5.1); TOTAL PROTEIN 5.4 g/dl (6.1-8.1)
[2016-09-30 08:03] VITALS: BP 141/76; RESP 18
[2016-09-30] MEDS: FAMOTIDINE 20 MG INJ IV SCH ×2 (08:14→20:16)
[2016-09-30] MEDS ORDERED: BISACODYL 10 MG SUPP PR PRN (10:30)
--- NOTE | 2016-09-30 14:49 | PN ---
Date/Time of Note Date/Time of Note DATE: 09/30/16 TIME: 14:47 Assessment/Plan Lines/Catheters IV [facility] ([facility]): Peripheral IV Erwin in Place (from [facility]): No Assessment/Plan Assessment/Plan 51-year-old female with gallstone pancreatitis * Continue n.p.o., IV fluid hydration, pain control * Lipase level normal. * Total bilirubin still elevated. * Ultimately I would recommend laparoscopic cholecystectomy; possible open as definitive treatment once lipase levels are near normalized to prevent further recurrence of gallstone pancreatitis. * I discussed this with the patient in detail. At this time she continues to refuse surgery. I discussed the risks of both operative and nonoperative management. She fully understands and continues to refuse surgery at this time. * Continue medical management * Patient may need ERCP if total bilirubin remains elevated as MRCP can sometimes miss distal common bile duct stones. Subjective 24 Hr Interval Summary Still with epigastric abdominal pain. Did not tolerate clear liquids. Afebrile. Exam/Review of Systems Vital Signs Vitals Vital Signs Date Time Temp Pulse Resp B/P Pulse Ox O2 Delivery O2 Flow Rate FiO2 09/30/16 08:03 98.9 85 18 141/76 97 09/28/16 00:00 Room Air Intake and Output 09/29/16 09/29/16 09/30/16 15:00 23:00 07:00 Intake Total 600 ml 2000 ml 1000 ml Output Total 2 ml Balance 600 ml 1998 ml 1000 ml Exam Free Text/Dictation GENERAL: Awake, alert, oriented x 3. No acute distress. SKIN: No jaundice. HEENT: PERRLA, EOMI, No Scleral Icterus CARDIOVASCULAR: S1S2, regular rate and rhythm. No murmurs appreciated. RESPIRATORY: Clear to auscultation bilaterally. ABDOMEN: Soft, bowel sounds present, nondistended, there is epigastric tenderness to palpation. There is no right upper quadrant tenderness to palpation. There is no evidence of rebound or guarding. EXTREMITIES: Free range of motion x 4. No cyanosis, edema, or clubbing. Results Result Diagram: 09/30/16 0520 09/30/16 0520 NASH EL MD September 30, 2016 14:49
[2016-09-30] MEDS ORDERED: morphine 2 MG INJ IV PRN (15:00)
[2016-09-30] MEDS: SENNA TAB PO SCH ×3 (15:27→21:00)
[2016-09-30] MEDS ORDERED: LACTULOSE 30ML CUP PO PRN (15:30)
[2016-09-30] MEDS ORDERED: MAGNESIUM HYDROXIDE 30ML CUP PO PRN (15:30)
--- NOTE | 2016-09-30 16:27 | PN ---
Date/Time of Note Date/Time of Note DATE: 09/30/16 TIME: 16:21 Assessment/Plan VTE Prophylaxis VTE Prophylaxis Intervention: SCD's Lines/Catheters IV Catheter Type (from Nrs): Peripheral IV Urinary Cath still in place: No Assessment/Plan Assessment/Plan Assessment * Abdominal pain/elevated bilirubin * pancreatitis,gallstone(?) * MRCP 09/27/2016 * Acute pancreatitis. Gallstone seen on prior ultrasound are not visualized on the MRI. Normal bile ducts. * Obstructive sleep apnea * Plan repeat liver profile ,ANCA,AMA,DERECK ERCP tomorrow if bilirubin is still elevated,risks and benefit explained to the patient agreed with planned procedure pain control Subjective 24 Hr Interval Summary Free Text/Dictation * Course reviewed with RN * patient seen and examined * still with abdominal pain * elevated bilirubin Exam/Review of Systems Vital Signs Vitals Vital Signs Date Time Temp Pulse Resp B/P Pulse Ox O2 Delivery O2 Flow Rate FiO2 09/30/16 08:03 98.9 85 18 141/76 97 09/28/16 00:00 Room Air Intake and Output 09/29/16 09/29/16 09/30/16 15:00 23:00 07:00 Intake Total 600 ml 2000 ml 1000 ml Output Total 2 ml Balance 600 ml 1998 ml 1000 ml Exam Constitutional: alert, oriented Psych: nl mood/affect Neck: non-tender, supple Respiratory: clear to auscultation, normal air movement Cardiovascular: nl pulses, regular rate and rhythm Gastrointestinal: non-tender, soft Musculoskeletal: nl extremities to inspection, nl gait and stance Neurological: nl speech, nl strength Skin: nl turgor Results Result Diagram: 09/30/1620 09/30/16 0520 Results 24 hrs Laboratory Tests Test 09/30/16 05:20 White Blood Count 13.1 H Red Blood Count 3.55 L Hemoglobin 10.7 L Hematocrit 32.1 L Mean Corpuscular Volume 90.4 Mean Corpuscular Hemoglobin 30.1 Mean Corpuscular Hemoglobin Concent 33.3 Red Cell Distribution Width 12.1 Platelet Count 214 Mean Platelet Volume 9.7 Neutrophils % 83.5 H Lymphocytes % 6.7 L Monocytes % 8.8 Eosinophils % 0.3 Basophils % 0.2 Nucleated Red Blood Cells % 0.0 Neutrophils # 10.9 H Lymphocytes # 0.9 Monocytes # 1.2 H Eosinophils # 0.0 Basophils # 0.0 Nucleated Red Blood Cells # 0.0 Sodium Level 135 Potassium Level 3.7 Chloride Level 106 Carbon Dioxide Level 24 Anion Gap 9 Blood Urea Nitrogen 5 L Creatinine 0.56 Glucose Level 90 Calcium Level 8.1 L Phosphorus Level 2.9 Magnesium Level 1.6 L Total Bilirubin 2.4 H Direct Bilirubin 0.00 Indirect Bilirubin 2.4 H Aspartate Amino Transf (AST/SGOT) 56 H Alanine Aminotransferase (ALT/SGPT) 217 H Alkaline Phosphatase 101 Total Protein 5.4 L Albumin 3.0 L Globulin 2.40 Albumin/Globulin Ratio 1.25 Amylase Level 83 # Lipase 56 Medications Medications Current Medications Sodium Chloride (NS) 1,000 ml @ 100 mls/hr Q10H IV Last administered on 12:58; Admin Dose 100 MLS/HR; Start 09/27/16 at 22:49 Ondansetron HCl (Zofran Inj) 4 mg Q6H PRN IV NAUSEA AND/OR VOMITING Last administered on 09/30/16 00:00; Admin Dose 4 MG; Start 09/27/16 at 23:00 Famotidine (Pepcid Iv) 20 mg Q12 IV Last administered on 09/30/16 08:14; Admin Dose 20 MG; Start 09/27/16 at 23:00 Hydralazine HCl (Apresoline) 10 mg Q6H PRN IV SbP>160; Start 09/28/16 at 11:00 Bisacodyl 10 mg 10 mg DAILY PRN [place] CONSTIPATION Last administered on 09/30/16 11:19; Admin Dose 10 MG; Start 09/30/16 at 10:30 Magnesium Sulfate (Magnesium Sulfate 2 Gm/50 ml) 50 ml @ 25 mls/hr ONCE ONCE IVPB ; Start 09/30/16 at 16:30; Stop 09/30/16 at 18:29 Morphine Sulfate (morphine) 2 mg Q4H PRN IV pain Last administered on 09/30/16 15:15; Admin Dose 2 MG; Start 09/30/16 at 15:00 Senna (Senokot) 2 tab BID PO ; Start 09/30/16 at 15:27 Lactulose (Enulose) 20 gm Q6H PRN PO CONSTIPATION; Start 09/30/16 at 15:30 Magnesium Hydroxide (Milk Of Mag) 30 ml BID PRN PO CONSTIPATION; Start 09/30/16 at 15:30 Hydromorphone HCl (Dilaudid) 0.5 mg Q4H PRN IV PAIN; Start 09/30/16 at 15:30 RITCHIE MELTON MD September 30, 2016 16:27
[2016-09-30] MEDS ORDERED: MAGNESIUM SULFATE 2 GM/50 ML 50 ML IVPB ONE (16:30)
[2016-09-30] MEDS ORDERED: INDOMETHACIN 50 MG SUPP PR ONE (16:30)
--- NOTE | 2016-09-30 16:49 | PN ---
Date/Time of Note Date/Time of Note DATE: 09/30/16 TIME: 16:46 Assessment/Plan VTE Prophylaxis VTE Prophylaxis Intervention: SCD's Lines/Catheters [facility] Type ([facility] Peripheral IV Urinary Cath still in place: No Assessment/Plan Chief Complaint/Hosp Course Assessment and plan 1. Acute pancreatitis. Patient did have abdominal imaging suspect for previous gallstone pancreatitis. Note most recent MRCP was negative for any stone seen that was originally visualized on first MRI. Patient still noted with elevated bilirubin. Tentative plan for possible ERCP should levels remain elevated. Continue with analgesics for pain. Diet to be advanced per GI. 2. [place]. Continue on CPAP. 3. Transaminitis with hyperbilirubinemia. Secondary to #1. Monitor LFT. Tentative plan for ERCP should level me elevated. DVT prophylaxis: SCDs GERD prophylaxis: H2 josé miguel Disposition plan: Keep n.p.o. for now. Continue IV hydration. Analgesics as needed. Monitor LFT. Possible ERCP should patient remain with elevated bilirubin Discussed medical Dr. Fish Problems: Subjective 24 Hr Interval Summary Free Text/Dictation Still reports having some abdominal pain. More notable left upper abdominal quadrant 3-4 intensity Exam/Review of Systems Vital Signs Vitals Vital Signs Date Time Temp Pulse Resp B/P Pulse Ox O2 Delivery O2 Flow Rate FiO2 09/30/16 08:03 98.9 85 18 141/76 97 09/28/16 00:00 Room Air Intake and Output 09/29/16 09/29/16 09/30/16 15:00 23:00 07:00 Intake Total 600 ml 2000 ml 1000 ml Output Total 2 ml Balance 600 ml 1998 ml 1000 ml Exam Constitutional: alert, oriented Psych: nl mood/affect Head: normocephalic Eyes: nl conjunctiva Neck: non-tender, supple, No jvd Respiratory: clear to auscultation Cardiovascular: regular rate and rhythm Gastrointestinal: soft, tender (More in left upper abdominal quadrant) Musculoskeletal: nl extremities to inspection Extremities: normal pulses Neurological: J[employer]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[employer]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-XII 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, nl mental status, nl speech Results Result Diagram: 09/30/16 0520 09/30/16 0520 Results 24 hrs Laboratory Tests Test 09/30/16 05:20 White Blood Count 13.1 H Red Blood Count 3.55 L Hemoglobin 10.7 L Hematocrit 32.1 L Mean Corpuscular Volume 90.4 Mean Corpuscular Hemoglobin 30.1 Mean Corpuscular Hemoglobin Concent 33.3 Red Cell Distribution Width 12.1 Platelet Count 214 Mean Platelet Volume 9.7 Neutrophils % 83.5 H Lymphocytes % 6.7 L Monocytes % 8.8 Eosinophils % 0.3 Basophils % 0.2 Nucleated Red Blood Cells % 0.0 Neutrophils # 10.9 H Lymphocytes # 0.9 Monocytes # 1.2 H Eosinophils # 0.0 Basophils # 0.0 Nucleated Red Blood Cells # 0.0 Sodium Level 135 Potassium Level 3.7 Chloride Level 106 Carbon Dioxide Level 24 Anion Gap 9 Blood Urea Nitrogen 5 L Creatinine 0.56 Glucose Level 90 Calcium Level 8.1 L Phosphorus Level 2.9 Magnesium Level 1.6 L Total Bilirubin 2.4 H Direct Bilirubin 0.00 Indirect Bilirubin 2.4 H Aspartate Amino Transf (AST/SGOT) 56 H Alanine Aminotransferase (ALT/SGPT) 217 H Alkaline Phosphatase 101 Total Protein 5.4 L Albumin 3.0 L Globulin 2.40 Albumin/Globulin Ratio 1.25 Amylase Level 83 # Lipase 56 Medications Medications Current Medications Sodium Chloride (NS) 1,000 ml @ 100 mls/hr Q10H IV Last administered on 12:58; Admin Dose 100 MLS/HR; Start 09/27/16 at 22:49 Ondansetron HCl (Zofran Inj) 4 mg Q6H PRN IV NAUSEA AND/OR VOMITING Last administered on 09/30/16 00:00; Admin Dose 4 MG; Start 09/27/16 at 23:00 Famotidine (Pepcid Iv) 20 mg Q12 IV Last administered on 09/30/16 08:14; Admin Dose 20 MG; Start 09/27/16 at 23:00 Hydralazine HCl (Apresoline) 10 mg Q6H PRN IV SbP>160; Start 09/28/16 at 11:00 Bisacodyl 10 mg 10 mg DAILY PRN [place] CONSTIPATION Last administered on 09/30/16 11:19; Admin Dose 10 MG; Start 09/30/16 at 10:30 Magnesium Sulfate (Magnesium Sulfate 2 Gm/50 ml) 50 ml @ 25 mls/hr ONCE ONCE IVPB ; Start 09/30/16 at 16:30; Stop 09/30/16 at 18:29 Morphine Sulfate (morphine) 2 mg Q4H PRN IV pain Last administered on 09/30/16t 15:15; Admin Dose 2 MG; Start 09/30/16 at 15:00 Senna (Senokot) 2 tab BID PO ; Start 09/30/16 at 15:27 Lactulose (Enulose) 20 gm Q6H PRN PO CONSTIPATION; Start 09/30/16 at 15:30 Magnesium Hydroxide (Milk Of Mag) 30 ml BID PRN PO CONSTIPATION; Start 09/30/16 at 15:30 Hydromorphone HCl (Dilaudid) 0.5 mg Q4H PRN IV PAIN; Start 09/30/16 at 15:30 CHANTE ESTRADA September 30, 2016 16:49
[2016-09-30 17:46] LABS: ALBUMIN 3.3 g/dl (3.3-4.9)
[2016-09-30 17:49] LABS: BILIRUBIN,INDIRECT 2.1 mg/dl (0-1.1); BILIRUBIN,TOTAL 2.1 mg/dl (0.2-1.3); TOTAL PROTEIN 6.5 g/dl (6.1-8.1)
[2016-09-30] MEDS ORDERED: NA PHOSPHATE/BIPHOS 133 ML ENEMA PR ONE (21:00)
[2016-09-30 21:26] VITALS: BP 157/80; PULSE 89; RESP 18
[2016-10-01] MEDS: HYDROmorphONE 1 MG/ML SYG IV PRN ×4 (02:13→22:16)
[2016-10-01 05:36] LABS: ADD SCAN DIFF NO
[2016-10-01 06:00] VITALS: BP 137/67; PULSE 77; RESP 19
[2016-10-01 06:03] LABS: POTASSIUM 3.3 mmol/L (3.5-5.1)
[2016-10-01 06:05] LABS: CREATININE 0.55 mg/dl (0.44-1.00)
[2016-10-01 06:06] LABS: MAGNESIUM 1.9 mg/dl (1.7-2.5)
[2016-10-01] MEDS: SOD CHLORIDE 0.9% 1,000 ML IV SCH ×3 (07:02→22:15)
[2016-10-01 07:12] LABS: BILIRUBIN,INDIRECT 1.3 mg/dl (0-1.1); BILIRUBIN,TOTAL 1.3 mg/dl (0.2-1.3)
[2016-10-01 07:27] VITALS: BP 153/81; RESP 20
[2016-10-01] MEDS: SENNA TAB PO SCH ×2 (08:02→20:58)
[2016-10-01] MEDS: FAMOTIDINE 20 MG INJ IV SCH ×2 (08:09→20:57)
[2016-10-01 09:11] LABS: BASOPHILS % 0.2 % (0.0-2.0); EOSINOPHILS # 0.1 10^3/ul (0.0-0.5); EOSINOPHILS % 0.4 % (0.0-7.0); HEMATOCRIT 32.4 % (37.0-47.0); HEMOGLOBIN 10.5 g/dl (12.0-16.0); LYMPHOCYTES # 1.2 10^3/ul (0.8-2.9); LYMPHOCYTES % 8.9 % (15.0-51.0); MEAN CORPUSCULAR HEMOGLOBIN 29.7 pg (29.0-33.0); MEAN CORPUSCULAR HGB CONC 32.4 g/dl (32.0-37.0); MEAN CORPUSCULAR VOLUME 91.5 fl (82.0-101.0); MEAN PLATELET VOLUME 10.1 fl (7.4-10.4); MONOCYTE # 1.1 10^3/ul (0.3-0.9); MONOCYTES % 8.2 % (0.0-11.0); NEUTROPHIL # 11.2 10^3/ul (1.6-7.5); NEUTROPHILS % 81.8 % (39.0-77.0); PLATELET COUNT 230 10^3/UL (140-415); RED BLOOD COUNT 3.54 10^6/ul (4.20-5.40); RED CELL DISTRIBUTION WIDTH 12.2 % (11.5-14.5); WHITE BLOOD COUNT 13.7 10^3/ul (4.8-10.8)
--- NOTE | 2016-10-01 09:41 | PN ---
Date/Time of Note Date/Time of Note DATE: 10/01/16 TIME: 09:40 Assessment/Plan Lines/Catheters IV Catheter Type (from [facility]): Peripheral IV Erwin in Place (from [facility]): No Assessment/Plan Assessment/Plan 51-year-old female with gallstone pancreatitis * Continue n.p.o., IV fluid hydration, pain control * Stool softeners for constipation * Lipase level normal. * Total bilirubin still elevated, but slowly trending down. * Ultimately I would recommend laparoscopic cholecystectomy; possible open as definitive treatment once lipase levels are near normalized to prevent further recurrence of gallstone pancreatitis. * I discussed this with the patient in detail. At this time she continues to refuse surgery. I discussed the risks of both operative and nonoperative management. She fully understands and continues to refuse surgery at this time. * Continue medical management * Can restart clear liquids if no plans for ERCP Subjective 24 Hr Interval Summary Abdominal pain improving. Currently complaining of some mid back pain. No bowel movement. Afebrile. Exam/Review of Systems Vital Signs Vitals Vital Signs Date Time Temp Pulse Resp B/P Pulse Ox O2 Delivery O2 Flow Rate FiO2 10/01/16 07:27 99.0 75 20 153/81 98 09/30/16 21:26 Room Air Intake and Output 09/30/16 09/30/16 10/01/16 15:00 23:00 07:00 Intake Total 1000 ml 550 ml 1100 ml Output Total 650 ml Balance 1000 ml 550 ml 450 ml Exam Free Text/Dictation 51-year-old female with gallstone pancreatitis * Continue n.p.o., IV fluid hydration, pain control * Lipase level normal. * Total bilirubin still elevated. * Ultimately I would recommend laparoscopic cholecystectomy; possible open as definitive treatment once lipase levels are near normalized to prevent further recurrence of gallstone pancreatitis. * I discussed this with the patient in detail. At this time she continues to refuse surgery. I discussed the risks of both operative and nonoperative management. She fully understands and continues to refuse surgery at this time. * Continue medical management * Patient may need ERCP if total bilirubin remains elevated as MRCP can sometimes miss distal common bile duct stones. Subjective GENERAL: Awake, alert, oriented x 3. No acute distress. SKIN: No jaundice. HEENT: PERRLA, EOMI, No Scleral Icterus CARDIOVASCULAR: S1S2, regular rate and rhythm. No murmurs appreciated. RESPIRATORY: Clear to auscultation bilaterally. ABDOMEN: Soft, bowel sounds present, nondistended, minimal epigastric tenderness to palpation. There is no evidence of rebound or guarding. EXTREMITIES: Free range of motion x 4. No cyanosis, edema, or clubbing. Results Result Diagram: 10/01/16 0505 10/01/16 0505 NASH EL MD October 01, 2016 09:41
[2016-10-01 12:38] LABS: ANA SCREEN NEGATIVE (NEGATIVE)
[2016-10-01 14:08] LABS: MYELOPEROXIDASE ANTIBODY <1.0 AI; PROTEINASE-3 ANTIBODY <1.0 AI
[2016-10-01] MEDS ORDERED: POTASSIUM CHLORIDE 50 ML IVPB ONE (14:30)
--- NOTE | 2016-10-01 15:25 | PN ---
Date/Time of Note Date/Time of Note DATE: 10/01/16 TIME: 15:20 Assessment/Plan VTE Prophylaxis VTE Prophylaxis Intervention: SCD's Lines/Catheters IV [facility] (from [facility]): Peripheral IV Urinary Cath still in place: No Assessment/Plan Assessment/Plan Abdominal pain/elevated bilirubin resolving * pancreatitis,gallstone(?) * MRCP 09/27/2016 * Acute pancreatitis. Gallstone seen on prior ultrasound are not visualized on the MRI. Normal bile ducts. * Obstructive sleep apnea * Plan * dc ercp * progress diet * monitor for recurrence of pain Subjective 24 Hr Interval Summary Free Text/Dictation * course reviewed with RN * patient seen and examined * No abdominal pain * Total bilirubin 1.3 ,direct bilirubin 0,indirect bilirubin 1.3 Exam/Review of Systems Vital Signs Vitals Vital Signs Date Time Temp Pulse Resp B/P Pulse Ox O2 Delivery O2 Flow Rate FiO2 10/01/16 07:27 99.0 75 20 153/81 98 09/30/16 21:26 Room Air Intake and Output 09/30/16 09/30/16 10/01/16 15:00 23:00 07:00 Intake Total 1000 ml 550 ml 1100 ml Output Total 650 ml Balance 1000 ml 550 ml 450 ml Exam Constitutional: alert, oriented Head: normocephalic Neck: non-tender, supple Respiratory: clear to auscultation, normal air movement Cardiovascular: nl pulses, regular rate and rhythm Gastrointestinal: non-tender, soft, No rebound or guarding Musculoskeletal: nl extremities to inspection, nl gait and stance Extremities: normal pulses Neurological: nl speech, nl strength Results Result Diagram: 10/01/16 0505 10/01/16 0505 Results 24 hrs Laboratory Tests Test 09/30/16 17:10 10/01/16 05:05 Total Bilirubin 2.0 H 1.3 Direct Bilirubin 0.00 0.00 Indirect Bilirubin 2.0 H 1.3 H Aspartate Amino Transf (AST/SGOT) 45 33 Alanine Aminotransferase (ALT/SGPT) 188 H 146 H Alkaline Phosphatase 111 104 Total Protein 6.5 # 6.0 L Albumin 3.3 3.0 L Anti-Nuclear Antibody Screen NEGATIVE ANCA Screen NEGATIVE Proteinase 3 (PR3) Antibodies <1.0 Myeloperoxidase Antibody <1.0 Smooth Muscle Antibody Interpret Pending White Blood Count 13.7 H Red Blood Count 3.54 L Hemoglobin 10.5 L Hematocrit 32.4 L Mean Corpuscular Volume 91.5 Mean Corpuscular Hemoglobin 29.7 Mean Corpuscular Hemoglobin Concent 32.4 Red Cell Distribution Width 12.2 Platelet Count 230 Mean Platelet Volume 10.1 Neutrophils % 81.8 H Lymphocytes % 8.9 L Monocytes % 8.2 Eosinophils % 0.4 Basophils % 0.2 Nucleated Red Blood Cells % 0.0 Neutrophils # 11.2 H Lymphocytes # 1.2 Monocytes # 1.1 H Eosinophils # 0.1 Basophils # 0.0 Nucleated Red Blood Cells # 0.0 Sodium Level 139 Potassium Level 3.3 L Chloride Level 103 Carbon Dioxide Level 22 Anion Gap 17 #H Blood Urea Nitrogen 3 L Creatinine 0.55 Glucose Level 83 Calcium Level 8.0 L Magnesium Level 1.9 Medications Medications Current Medications Sodium Chloride (NS) 1,000 ml @ 100 mls/hr Q10H IV Last administered on 10:36; Admin Dose 100 MLS/HR; Start 09/27/16 at 22:49 Ondansetron HCl (Zofran Inj) 4 mg Q6H PRN IV NAUSEA AND/OR VOMITING Last administered on 09/30/16 00:00; Admin Dose 4 MG; Start 09/27/16 at 23:00 Famotidine (Pepcid Iv) 20 mg Q12 IV Last administered on 10/01/16 08:09; Admin Dose 20 MG; Start 09/27/16 at 23:00 Hydralazine HCl (Apresoline) 10 mg Q6H PRN IV SbP>160; Start 09/28/16 at 11:00 Bisacodyl (Dulcolax Supp) 10 mg DAILY PRN [place] CONSTIPATION Last administered on 09/30/16 11:19; Admin Dose 10 MG; Start 09/30/16 at 10:30 Morphine Sulfate (morphine) 2 mg Q4H PRN IV pain Last administered on 09/30/16 15:15; Admin Dose 2 MG; Start 09/30/16 at 15:00 Senna (Senokot) 2 tab BID PO Last administered on 09/30/16 16:39; Admin Dose 2 TAB; Start 09/30/16 at 15:27 Lactulose (Enulose) 20 gm Q6H PRN PO CONSTIPATION; Start 09/30/16 at 15:30 Magnesium Hydroxide (Milk Of Mag) 30 ml BID PRN PO CONSTIPATION; Start 09/30/16 at 15:30 Hydromorphone HCl (Dilaudid) 0.5 mg Q4H PRN IV PAIN Last administered on 08:00; Admin Dose 0.5 MG; Start 09/30/16 at 15:30 Simethicone 125 mg 125 mg Q6H PRN PO DISTENSION/GAS/BLOATING Last administered on 10/01/16 06:10; Admin Dose 125 MG; Start 10/01/16 at 00:30 Potassium Chloride/Sodium Chloride (KCl/NS) 110 ml @ 55 mls/hr ONCE ONCE IV ; Start 10/01/16 at 16:00; Stop 10/01/16 at 17:59 RITCHIE MELTON MD October 01, 2016 15:24
[2016-10-01] MEDS ORDERED: KCL 20 MEQ in NS 100 ML IV ONE (16:00)
--- NOTE | 2016-10-01 17:40 | PN ---
Date/Time of Note Date/Time of Note DATE: 10/01/16 TIME: 17:36 Assessment/Plan VTE Prophylaxis VTE Prophylaxis Intervention: ambulation Lines/Catheters IV Catheter Type (from [facility]): Peripheral IV Urinary Cath still in place: No Assessment/Plan Chief Complaint/Hosp Course Assessment and plan 1. Acute pancreatitis. Patient did have abdominal imaging suspect for previous gallstone pancreatitis. Note most recent MRCP was negative for any stone seen that was originally visualized on first MRI. hyperbilirubenemia improved. No further plan for ERCP. advance diet per GI recs 2. [place]. Continue on CPAP. 3. Transaminitis with hyperbilirubinemia. Secondary to #1. Monitor LFT. improving DVT prophylaxis: SCDs GERD prophylaxis: H2 josé miguel Disposition plan: advance diet as tolerated. d/c when cleared by consultants Discussed medical Dr. Fish Problems: Subjective 24 Hr Interval Summary Free Text/Dictation comfortable at present. reports less pain in abdomen Exam/Review of Systems Vital Signs Vitals Vital Signs Date Time Temp Pulse Resp B/P Pulse Ox O2 Delivery O2 Flow Rate FiO2 10/01/16 07:27 99.0 75 20 153/81 98 09/30/16 21:26 Room Air Intake and Output 09/30/16 09/30/16 10/01/16 15:00 23:00 07:00 Intake Total 1000 ml 550 ml 1100 ml Output Total 650 ml Balance 1000 ml 550 ml 450 ml Exam Constitutional: alert, oriented Psych: no complaints Head: normocephalic Neck: non-tender, supple, No jvd Respiratory: clear to auscultation, normal air movement Cardiovascular: regular rate and rhythm Gastrointestinal: soft, tender (minimal 2 out of 10 intensity on left upper abdomen) 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, nl mental status, nl speech Skin: nl turgor, No rash or lesions Results Result Diagram: 10/01/16 0505 10/01/16 0505 Results 24 hrs Laboratory Tests Test 10/01/16 05:05 White Blood Count 13.7 H Red Blood Count 3.54 L Hemoglobin 10.5 L Hematocrit 32.4 L Mean Corpuscular Volume 91.5 Mean Corpuscular Hemoglobin 29.7 Mean Corpuscular Hemoglobin Concent 32.4 Red Cell Distribution Width 12.2 Platelet Count 230 Mean Platelet Volume 10.1 Neutrophils % 81.8 H Lymphocytes % 8.9 L Monocytes % 8.2 Eosinophils % 0.4 Basophils % 0.2 Nucleated Red Blood Cells % 0.0 Neutrophils # 11.2 H Lymphocytes # 1.2 Monocytes # 1.1 H Eosinophils # 0.1 Basophils # 0.0 Nucleated Red Blood Cells # 0.0 Sodium Level 139 Potassium Level 3.3 L Chloride Level 103 Carbon Dioxide Level 22 Anion Gap 17 #H Blood Urea Nitrogen 3 L Creatinine 0.55 Glucose Level 83 Calcium Level 8.0 L Magnesium Level 1.9 Total Bilirubin 1.3 Direct Bilirubin 0.00 Indirect Bilirubin 1.3 H Aspartate Amino Transf (AST/SGOT) 33 Alanine Aminotransferase (ALT/SGPT) 146 H Alkaline Phosphatase 104 Total Protein 6.0 L Albumin 3.0 L Medications Medications Current Medications Sodium Chloride (NS) 1,000 ml @ 100 mls/hr Q10H IV Last administered on 10:36; Admin Dose 100 MLS/HR; Start 09/27/16 at 22:49 Ondansetron HCl (Zofran Inj) 4 mg Q6H PRN IV NAUSEA AND/OR VOMITING Last administered on 09/30/16 00:00; Admin Dose 4 MG; Start 09/27/16 at 23:00 Famotidine (Pepcid Iv) 20 mg Q12 IV Last administered on 10/01/16 08:09; Admin Dose 20 MG; Start 09/27/16 at 23:00 Hydralazine HCl (Apresoline) 10 mg Q6H PRN IV SbP>160; Start 09/28/16 at 11:00 Bisacodyl (Dulcolax Supp) 10 mg DAILY PRN [place] CONSTIPATION Last administered on 09/30/16 11:19; Admin Dose 10 MG; Start 09/30/16 at 10:30 Morphine Sulfate (morphine) 2 mg Q4H PRN IV pain Last administered on 09/30/16 15:15; Admin Dose 2 MG; Start 09/30/16 at 15:00 Senna (Senokot) 2 tab BID PO Last administered on 09/30/16 16:39; Admin Dose 2 TAB; Start 09/30/16 at 15:27 Lactulose (Enulose) 20 gm Q6H PRN PO CONSTIPATION; Start 09/30/16 at 15:30 Magnesium Hydroxide (Milk Of Mag) 30 ml BID PRN PO CONSTIPATION; Start 09/30/16 at 15:30 Hydromorphone HCl (Dilaudid) 0.5 mg Q4H PRN IV PAIN Last administered on 15:25; Admin Dose 0.5 MG; Start 09/30/16 at 15:30 Simethicone 125 mg 125 mg Q6H PRN PO DISTENSION/GAS/BLOATING Last administered on 10/01/16 06:10; Admin Dose 125 MG; Start 10/01/16 at 00:30 Potassium Chloride/Sodium Chloride (KCl/NS) 110 ml @ 55 mls/hr ONCE ONCE IV Last administered on 10/01/16 15:30; Admin Dose 55 MLS/HR; Start 10/01/16 at 16: 00; Stop 10/01/16 at 17:59 CHANTE ESTRADA October 01, 2016 17:39
[2016-10-01 19:58] VITALS: BP 152/81; RESP 20
[2016-10-02 06:23] LABS: ADD SCAN DIFF NO
[2016-10-02 06:31] LABS: BASOPHILS % 0.3 % (0.0-2.0); EOSINOPHILS # 0.1 10^3/ul (0.0-0.5); EOSINOPHILS % 0.8 % (0.0-7.0); HEMATOCRIT 30.6 % (37.0-47.0); HEMOGLOBIN 10.5 g/dl (12.0-16.0); LYMPHOCYTES # 1.1 10^3/ul (0.8-2.9); LYMPHOCYTES % 10.6 % (15.0-51.0); MEAN CORPUSCULAR HEMOGLOBIN 30.3 pg (29.0-33.0); MEAN CORPUSCULAR HGB CONC 34.3 g/dl (32.0-37.0); MEAN CORPUSCULAR VOLUME 88.4 fl (82.0-101.0); MEAN PLATELET VOLUME 9.8 fl (7.4-10.4); MONOCYTE # 0.9 10^3/ul (0.3-0.9); MONOCYTES % 8.6 % (0.0-11.0); NEUTROPHIL # 8.2 10^3/ul (1.6-7.5); NEUTROPHILS % 79.1 % (39.0-77.0); PLATELET COUNT 262 10^3/UL (140-415); RED BLOOD COUNT 3.46 10^6/ul (4.20-5.40); RED CELL DISTRIBUTION WIDTH 12.1 % (11.5-14.5); WHITE BLOOD COUNT 10.4 10^3/ul (4.8-10.8)
[2016-10-02 06:55] LABS: CHLORIDE 105 mmol/L (97-110); POTASSIUM 3.3 mmol/L (3.5-5.1); SODIUM 141 mmol/L (135-144)
[2016-10-02 06:57] LABS: CREATININE 0.55 mg/dl (0.44-1.00)
[2016-10-02 06:58] LABS: ANION GAP 14 (8-16); BLOOD UREA NITROGEN < 2 mg/dl (7-20); CALCIUM 8.2 mg/dl (8.4-10.2); CARBON DIOXIDE 25 mmol/L (21-31); GLUCOSE 103 mg/dl (70-220)
[2016-10-02 07:56] VITALS: BP 127/85; RESP 18
[2016-10-02] MEDS: SENNA TAB PO SCH ×2 (08:43→20:39)
[2016-10-02] MEDS: HYDROmorphONE 1 MG/ML SYG IV PRN ×2 (08:52→21:38)
[2016-10-02] MEDS: FAMOTIDINE 20 MG INJ IV SCH ×2 (08:52→20:39)
[2016-10-02] MEDS: SOD CHLORIDE 0.9% 1,000 ML IV SCH (08:53)
[2016-10-02] MEDS ORDERED: POTASSIUM CHLORIDE (SR) 20 MEQ TAB PO STA (10:32)
[2016-10-02] MEDS ORDERED: ZOLPIDEM 5 MG TAB PO PRN (11:30)
--- NOTE | 2016-10-02 12:28 | PN ---
Date/Time of Note Date/Time of Note DATE: 10/02/16 TIME: 12:26 Assessment/Plan VTE Prophylaxis VTE Prophylaxis Intervention: SCD's Lines/Catheters IV Catheter Type (from [facility]): Peripheral IV Urinary Cath still in place: No Assessment/Plan Chief Complaint/Hosp Course Assessment and plan 1. Acute pancreatitis. Patient did have abdominal imaging suspect for previous gallstone pancreatitis. Note most recent MRCP was negative for any stone seen that was originally visualized on first MRI. hyperbilirubenemia improved. No further plan for ERCP. advance diet per GI recs 2. [place]. Continue on CPAP. 3. Transaminitis with hyperbilirubinemia. Secondary to #1. Monitor LFT. improving DVT prophylaxis: SCDs GERD prophylaxis: H2 josé miguel Disposition plan: reported diarrhea last night. none today. cont to advance diet as tolerated d/c when cleared by consultants Discussed medical Dr. Fish Problems: Subjective 24 Hr Interval Summary Free Text/Dictation no s/s of distress. reports less abd pain at this time Exam/Review of Systems Vital Signs Vitals Vital Signs Date Time Temp Pulse Resp B/P Pulse Ox O2 Delivery O2 Flow Rate FiO2 10/02/16 07:56 98.0 18 18 127/85 95 09/30/16 21:26 Room Air Intake and Output 10/01/16 10/01/16 10/02/16 15:00 23:00 07:00 Intake Total 400 ml 2470 ml 1400 ml Output Total 1300 ml 700 ml Balance 400 ml 1170 ml 700 ml Exam Constitutional: alert, oriented Head: normocephalic Neck: supple, No jvd Respiratory: clear to auscultation, normal air movement Cardiovascular: regular rate and rhythm Gastrointestinal: soft, tender (less today) Musculoskeletal: nl extremities to inspection Extremities: normal pulses Neurological: nl mental status, nl speech Results Result Diagram: 10/02/16 0548 10/02/16 0548 Results 24 hrs Laboratory Tests Test 10/02/16 05:48 White Blood Count 10.4 # Red Blood Count 3.46 L Hemoglobin 10.5 L Hematocrit 30.6 L Mean Corpuscular Volume 88.4 Mean Corpuscular Hemoglobin 30.3 Mean Corpuscular Hemoglobin Concent 34.3 Red Cell Distribution Width 12.1 Platelet Count 262 Mean Platelet Volume 9.8 Neutrophils % 79.1 H Lymphocytes % 10.6 L Monocytes % 8.6 Eosinophils % 0.8 Basophils % 0.3 Nucleated Red Blood Cells % 0.0 Neutrophils # 8.2 H Lymphocytes # 1.1 Monocytes # 0.9 Eosinophils # 0.1 Basophils # 0.0 Nucleated Red Blood Cells # 0.0 Sodium Level 141 Potassium Level 3.3 L Chloride Level 105 Carbon Dioxide Level 25 Anion Gap 14 Blood Urea Nitrogen < 2 L Creatinine 0.55 Glucose Level 103 Calcium Level 8.2 L Magnesium Level 1.7 Medications Medications Current Medications Ondansetron HCl (Zofran Inj) 4 mg Q6H PRN IV NAUSEA AND/OR VOMITING Last administered on 09/30/16 00:00; Admin Dose 4 MG; Start 09/27/16 at 23:00 Famotidine (Pepcid Iv) 20 mg Q12 IV Last administered on 10/02/16 08:52; Admin Dose 20 MG; Start 09/27/16 at 23:00 Hydralazine HCl (Apresoline) 10 mg Q6H PRN IV SbP>160; Start 09/28/16 at 11:00 Bisacodyl (Dulcolax Supp) 10 mg DAILY PRN [place] CONSTIPATION Last administered on 09/30/16 11:19; Admin Dose 10 MG; Start 09/30/16 at 10:30 Morphine Sulfate (morphine) 2 mg Q4H PRN IV pain Last administered on 09/30/16 15:15; Admin Dose 2 MG; Start 09/30/16 at 15:00 Senna (Senokot) 2 tab BID PO Last administered on 09/30/16 16:39; Admin Dose 2 TAB; Start 09/30/16 at 15:27 Lactulose (Enulose) 20 gm Q6H PRN PO CONSTIPATION; Start 09/30/16 at 15:30 Magnesium Hydroxide (Milk Of Mag) 30 ml BID PRN PO CONSTIPATION; Start 09/30/16 at 15:30 Hydromorphone HCl (Dilaudid) 0.5 mg Q4H PRN IV PAIN Last administered on 08:52; Admin Dose 0.5 MG; Start 09/30/16 at 15:30 Zolpidem Tartrate (Ambien) 5 mg HS PRN PO INSOMNIA; Start 10/02/16 at 11:30 CHANTE ESTRADA October 02, 2016 12:28
--- NOTE | 2016-10-02 12:52 | PN ---
Date/Time of Note Date/Time of Note DATE: 10/02/16 TIME: 12:50 Assessment/Plan Lines/Catheters IV Catheter Type (from Nrsg): Peripheral IV Erwin in Place (from Nrsg): No Assessment/Plan Assessment/Plan 51-year-old female with gallstone pancreatitis * Tolerating diet * Pain controlled * Continue supportive care * D/C planning per primary care team Subjective 24 Hr Interval Summary Tolerating diet. Feels bloated. Had some diarrhea. Pain improving. Afebrile. Exam/Review of Systems Vital Signs Vitals Vital Signs Date Time Temp Pulse Resp B/P Pulse Ox O2 Delivery O2 Flow Rate FiO2 10/02/16 07:56 98.0 18 18 127/85 95 09/30/16 21:26 Room Air Intake and Output 10/01/16 10/01/16 10/02/16 15:00 23:00 07:00 Intake Total 400 ml 2470 ml 1400 ml Output Total 1300 ml 700 ml Balance 400 ml 1170 ml 700 ml Exam Free Text/Dictation GENERAL: Awake, alert, oriented x 3. No acute distress. SKIN: No jaundice. HEENT: PERRLA, EOMI, No Scleral Icterus CARDIOVASCULAR: S1S2, regular rate and rhythm. No murmurs appreciated. RESPIRATORY: Clear to auscultation bilaterally. ABDOMEN: Soft, bowel sounds present, nondistended, minimal epigastric tenderness to palpation. There is no evidence of rebound or guarding. EXTREMITIES: Free range of motion x 4. No cyanosis, edema, or clubbing. Results Result Diagram: 10/02/16 0548 10/02/16 0548 NASH EL MD October 02, 2016 12:52
--- NOTE | 2016-10-02 15:10 | PN ---
Date/Time of Note Date/Time of Note DATE: 10/02/16 TIME: 15:07 Assessment/Plan VTE Prophylaxis VTE Prophylaxis Intervention: ambulation Lines/Catheters IV [facility] Type (from [facility]): Peripheral IV Urinary Cath still in place: No Assessment/Plan Assessment/Plan Diarrhea resolved Abdominal pain/elevated bilirubin resolved * pancreatitis,gallstone(?) * MRCP 09/27/2016 * Acute pancreatitis. Gallstone seen on prior ultrasound are not visualized on the MRI. Normal bile ducts. * Obstructive sleep apnea * Plan * progress diet * monitor for recurrence of pain Subjective 24 Hr Interval Summary Free Text/Dictation * Course reviewed with RN * Patient seen and examined * complains of diarrhea x2 watery,minimal,no blood * denies abdominal pain Exam/Review of Systems Vital Signs Vitals Vital Signs Date Time Temp Pulse Resp B/P Pulse Ox O2 Delivery O2 Flow Rate FiO2 10/02/16 07:56 98.0 18 18 127/85 95 09/30/16 21:26 Room Air Intake and Output 10/01/16 10/01/16 10/02/16 14:59 22:59 06:59 Intake Total 400 ml 2470 ml 1400 ml Output Total 1300 ml 700 ml Balance 400 ml 1170 ml 700 ml Exam Constitutional: alert, oriented Neck: non-tender, supple Respiratory: clear to auscultation, normal air movement Cardiovascular: nl pulses, regular rate and rhythm Gastrointestinal: bowel sounds, non-tender, soft Musculoskeletal: nl extremities to inspection, nl gait and stance Extremities: normal pulses Neurological: nl speech, nl strength Skin: nl turgor, No rash or lesions Results Result Diagram: 10/02/16 0548 10/02/16 0548 Results 24 hrs Laboratory Tests Test 10/02/16 05:48 White Blood Count 10.4 # Red Blood Count 3.46 L Hemoglobin 10.5 L Hematocrit 30.6 L Mean Corpuscular Volume 88.4 Mean Corpuscular Hemoglobin 30.3 Mean Corpuscular Hemoglobin Concent 34.3 Red Cell Distribution Width 12.1 Platelet Count 262 Mean Platelet Volume 9.8 Neutrophils % 79.1 H Lymphocytes % 10.6 L Monocytes % 8.6 Eosinophils % 0.8 Basophils % 0.3 Nucleated Red Blood Cells % 0.0 Neutrophils # 8.2 H Lymphocytes # 1.1 Monocytes # 0.9 Eosinophils # 0.1 Basophils # 0.0 Nucleated Red Blood Cells # 0.0 Sodium Level 141 Potassium Level 3.3 L Chloride Level 105 Carbon Dioxide Level 25 Anion Gap 14 Blood Urea Nitrogen < 2 L Creatinine 0.55 Glucose Level 103 Calcium Level 8.2 L Magnesium Level 1.7 Medications Medications Current Medications Ondansetron HCl (Zofran Inj) 4 mg Q6H PRN IV NAUSEA AND/OR VOMITING Last administered on 09/30/16 00:00; Admin Dose 4 MG; Start 09/27/16 at 23:00 Famotidine (Pepcid Iv) 20 mg Q12 IV Last administered on 10/02/16 08:52; Admin Dose 20 MG; Start 09/27/16 at 23:00 Hydralazine HCl (Apresoline) 10 mg Q6H PRN IV SbP>160; Start 09/28/16 at 11:00 Bisacodyl (Dulcolax Supp) 10 mg DAILY PRN [place] CONSTIPATION Last administered on 09/30/16 11:19; Admin Dose 10 MG; Start 09/30/16 at 10:30 Morphine Sulfate (morphine) 2 mg Q4H PRN IV pain Last administered on 09/30/16 15:15; Admin Dose 2 MG; Start 09/30/16 at 15:00 Senna (Senokot) 2 tab BID PO Last administered on 09/30/16 16:39; Admin Dose 2 TAB; Start 09/30/16 at 15:27 Lactulose (Enulose) 20 gm Q6H PRN PO CONSTIPATION; Start 09/30/16 at 15:30 Magnesium Hydroxide (Milk Of Mag) 30 ml BID PRN PO CONSTIPATION; Start 09/30/16 at 15:30 Hydromorphone HCl (Dilaudid) 0.5 mg Q4H PRN IV PAIN Last administered on 08:52; Admin Dose 0.5 MG; Start 09/30/16 at 15:30 Zolpidem Tartrate (Ambien) 5 mg HS PRN PO INSOMNIA; Start 10/02/16 at 11:30 RITCHIE MELTON MD October 02, 2016 15:10
[2016-10-02 19:51] VITALS: BP 142/72; RESP 20
[2016-10-03] MEDS: HYDROmorphONE 1 MG/ML SYG IV PRN (01:44)
[2016-10-03 06:10] LABS: ADD SCAN DIFF NO
[2016-10-03 06:12] LABS: BASOPHILS % 0.2 % (0.0-2.0); EOSINOPHILS # 0.1 10^3/ul (0.0-0.5); EOSINOPHILS % 1.2 % (0.0-7.0); HEMATOCRIT 32.7 % (37.0-47.0); LYMPHOCYTES # 1.8 10^3/ul (0.8-2.9); LYMPHOCYTES % 16.8 % (15.0-51.0); MEAN CORPUSCULAR HGB CONC 33.6 g/dl (32.0-37.0); MEAN CORPUSCULAR VOLUME 89.1 fl (82.0-101.0); MEAN PLATELET VOLUME 9.4 fl (7.4-10.4); MONOCYTE # 0.9 10^3/ul (0.3-0.9); MONOCYTES % 8.4 % (0.0-11.0); NEUTROPHIL # 7.6 10^3/ul (1.6-7.5); NEUTROPHILS % 72.9 % (39.0-77.0); PLATELET COUNT 291 10^3/UL (140-415); RED BLOOD COUNT 3.67 10^6/ul (4.20-5.40); RED CELL DISTRIBUTION WIDTH 12.3 % (11.5-14.5); WHITE BLOOD COUNT 10.4 10^3/ul (4.8-10.8)
[2016-10-03 06:49] LABS: CHLORIDE 101 mmol/L (97-110); POTASSIUM 3.3 mmol/L (3.5-5.1); SODIUM 141 mmol/L (135-144)
[2016-10-03 06:52] LABS: ANION GAP 13 (8-16); CALCIUM 8.7 mg/dl (8.4-10.2); CARBON DIOXIDE 30 mmol/L (21-31); CREATININE 0.58 mg/dl (0.44-1.00); GLUCOSE 99 mg/dl (70-220)
[2016-10-03 07:07] LABS: BLOOD UREA NITROGEN < 2 mg/dl (7-20)
[2016-10-03 07:41] VITALS: BP 140/78; RESP 16
[2016-10-03] MEDS: SENNA TAB PO SCH ×2 (09:00→21:00)
--- NOTE | 2016-10-03 09:18 | PN ---
Date/Time of Note Date/Time of Note DATE: 10/03/16 TIME: :17 Assessment/Plan Lines/Catheters IV Catheter Type (from [facility]): Peripheral IV Erwin in Place (from [facility]): No Assessment/Plan Assessment/Plan 51-year-old female with gallstone pancreatitis * Continue supportive care * D/C planning per primary care team Subjective 24 Hr Interval Summary Occasional left upper quadrant abdominal pain after eating. Afebrile. Exam/Review of Systems Vital Signs Vitals Vital Signs Date Time Temp Pulse Resp B/P Pulse Ox O2 Delivery O2 Flow Rate FiO2 10/03/16 07:41 98.1 68 16 140/78 95 09/30/16 21:26 Room Air Intake and Output 10/02/16 10/02/16 10/03/16 15:00 23:00 07:00 Intake Total 400 ml 1960 ml 240 ml Output Total 2800 ml 800 ml Balance 400 ml -840 ml -560 ml Exam Free Text/Dictation GENERAL: Awake, alert, oriented x 3. No acute distress. SKIN: No jaundice. HEENT: PERRLA, EOMI, No Scleral Icterus CARDIOVASCULAR: S1S2, regular rate and rhythm. No murmurs appreciated. RESPIRATORY: Clear to auscultation bilaterally. ABDOMEN: Soft, bowel sounds present, nondistended, minimal epigastric tenderness to deep palpation. There is no evidence of rebound or guarding. EXTREMITIES: Free range of motion x 4. No cyanosis, edema, or clubbing. Results Result Diagram: 10/03/16 0540 10/03/16 0540 NASH EL MD October 03, 2016 09:18
[2016-10-03] MEDS: FAMOTIDINE 20 MG INJ IV SCH ×2 (09:23→20:21)
[2016-10-03] MEDS ORDERED: SENN-53 PO (11:21)
[2016-10-03] MEDS ORDERED: HYDR-906 PO (11:21)
[2016-10-03] MEDS ORDERED: ZOLP5TAB7 PO (11:21)
--- NOTE | 2016-10-03 15:10 | PN ---
Date/Time of Note Date/Time of Note DATE: 10/03/16 TIME: 15:07 Assessment/Plan VTE Prophylaxis VTE Prophylaxis Intervention: ambulation Lines/Catheters IV Catheter Type (from [facility]): Peripheral IV Urinary Cath still in place: No Assessment/Plan Assessment/Plan Abdominal pain * pancreatitis,gallstone(?) * MRCP 09/27/2016 * Acute pancreatitis. Gallstone seen on prior ultrasound are not visualized on the MRI. Normal bile ducts. * Obstructive sleep apnea * Plan * progress diet * monitor for recurrence of pain * pain control * repeat lipase/liver function test Subjective 24 Hr Interval Summary Free Text/Dictation * Course reviewed with RN * patient seen and examined * episode of abdominal pain last night radiating to the back * afebrile Exam/Review of Systems Vital Signs Vitals Vital Signs Date Time Temp Pulse Resp B/P Pulse Ox O2 Delivery O2 Flow Rate FiO2 10/03/16 07:41 98.1 68 16 140/78 95 09/30/16 21:26 Room Air Intake and Output 10/02/16 10/02/16 10/03/16 15:00 23:00 07:00 Intake Total 400 ml 1960 ml 240 ml Output Total 2800 ml 800 ml Balance 400 ml -840 ml -560 ml Exam Constitutional: alert, oriented, well developed Neck: non-tender, supple Respiratory: clear to auscultation, normal air movement Cardiovascular: nl pulses, regular rate and rhythm Gastrointestinal: non-tender, soft Musculoskeletal: nl extremities to inspection Extremities: normal pulses Neurological: nl speech, nl strength Results Result Diagram: 10/03/16 0540 10/03/16 0540 Results 24 hrs Laboratory Tests Test 10/03/16 05:40 White Blood Count 10.4 Red Blood Count 3.67 L Hemoglobin 11.0 L Hematocrit 32.7 L Mean Corpuscular Volume 89.1 Mean Corpuscular Hemoglobin 30.0 Mean Corpuscular Hemoglobin Concent 33.6 Red Cell Distribution Width 12.3 Platelet Count 291 Mean Platelet Volume 9.4 Neutrophils % 72.9 Lymphocytes % 16.8 Monocytes % 8.4 Eosinophils % 1.2 Basophils % 0.2 Nucleated Red Blood Cells % 0.0 Neutrophils # 7.6 H Lymphocytes # 1.8 Monocytes # 0.9 Eosinophils # 0.1 Basophils # 0.0 Nucleated Red Blood Cells # 0.0 Sodium Level 141 Potassium Level 3.3 L Chloride Level 101 Carbon Dioxide Level 30 Anion Gap 13 Blood Urea Nitrogen < 2 L Creatinine 0.58 Glucose Level 99 Calcium Level 8.7 Medications Medications Current Medications Ondansetron HCl (Zofran Inj) 4 mg Q6H PRN IV NAUSEA AND/OR VOMITING Last administered on 09/30/16 00:00; Admin Dose 4 MG; Start 09/27/16 at 23:00 Famotidine (Pepcid Iv) 20 mg Q12 IV Last administered on 10/03/16 09:23; Admin Dose 20 MG; Start 09/27/16 at 23:00 Hydralazine HCl (Apresoline) 10 mg Q6H PRN IV SbP>160; Start 09/28/16 at 11:00 Bisacodyl (Dulcolax Supp) 10 mg DAILY PRN [place] CONSTIPATION Last administered on 09/30/16 11:19; Admin Dose 10 MG; Start 09/30/16 at 10:30 Morphine Sulfate (morphine) 2 mg Q4H PRN IV pain Last administered on 09/30/16 15:15; Admin Dose 2 MG; Start 09/30/16 at 15:00 Senna (Senokot) 2 tab BID PO Last administered on 10/02/16 20:39; Admin Dose 2 TAB; Start 09/30/16 at 15:27 Lactulose (Enulose) 20 gm Q6H PRN PO CONSTIPATION; Start 09/30/16 at 15:30 Magnesium Hydroxide (Milk Of Mag) 30 ml BID PRN PO CONSTIPATION; Start 09/30/16 at 15:30 Hydromorphone HCl (Dilaudid) 0.5 mg Q4H PRN IV PAIN Last administered on 01:44; Admin Dose 0.5 MG; Start 09/30/16 at 15:30 Zolpidem Tartrate (Ambien) 5 mg HS PRN PO INSOMNIA; Start 10/02/16 at 11:30 Acetaminophen/ Hydrocodone Bitart ([place] (5/325)) 1 tab Q4H PRN PO pain; Start 10/03/16 at 12:30 RITCHIE MELTON MD October 03, 2016 15:10
--- NOTE | 2016-10-03 15:23 | PN ---
Date/Time of Note Date/Time of Note DATE: 10/03/16 TIME: 15:22 Assessment/Plan VTE Prophylaxis VTE Prophylaxis Intervention: ambulation Lines/Catheters IV [facility] Type (from [facility]): Peripheral IV Urinary Cath still in place: No Assessment/Plan Chief Complaint/Hosp Course Assessment and plan 1. Acute pancreatitis. Patient did have abdominal imaging suspect for previous gallstone pancreatitis. Note most recent MRCP was negative for any stone seen that was originally visualized on first MRI. hyperbilirubenemia improved. No further plan for ERCP. advance diet per GI recs. repeat lft/bili level per GI 2. [place]. Continue on CPAP. 3. Transaminitis with hyperbilirubinemia. Secondary to #1. Monitor LFT. improving DVT prophylaxis: SCDs GERD prophylaxis: H2 josé miguel Disposition plan: diet advanced to low fat/low cholesterol. d/c if able to tolerate diet and cleared by consultants Discussed medical Dr. Fish Problems: Subjective 24 Hr Interval Summary Free Text/Dictation no reports of abd pain at this time. Exam/Review of Systems Vital Signs Vitals Vital Signs Date Time Temp Pulse Resp B/P Pulse Ox O2 Delivery O2 Flow Rate FiO2 10/03/16 07:41 98.1 68 16 140/78 95 09/30/16 21:26 Room Air Intake and Output 10/02/16 10/02/16 10/03/16 15:00 23:00 07:00 Intake Total 400 ml 1960 ml 240 ml Output Total 2800 ml 800 ml Balance 400 ml -840 ml -560 ml Exam Constitutional: alert, oriented Psych: nl mood/affect Eyes: nl conjunctiva Neck: No jvd Respiratory: normal air movement Cardiovascular: other (regular rate) Gastrointestinal: non-tender, soft Musculoskeletal: nl extremities to inspection Neurological: nl mental status, nl speech Results Result Diagram: 10/03/16 0540 10/03/16 0540 Results 24 hrs Laboratory Tests Test 10/03/16 05:40 White Blood Count 10.4 Red Blood Count 3.67 L Hemoglobin 11.0 L Hematocrit 32.7 L Mean Corpuscular Volume 89.1 Mean Corpuscular Hemoglobin 30.0 Mean Corpuscular Hemoglobin Concent 33.6 Red Cell Distribution Width 12.3 Platelet Count 291 Mean Platelet Volume 9.4 Neutrophils % 72.9 Lymphocytes % 16.8 Monocytes % 8.4 Eosinophils % 1.2 Basophils % 0.2 Nucleated Red Blood Cells % 0.0 Neutrophils # 7.6 H Lymphocytes # 1.8 Monocytes # 0.9 Eosinophils # 0.1 Basophils # 0.0 Nucleated Red Blood Cells # 0.0 Sodium Level 141 Potassium Level 3.3 L Chloride Level 101 Carbon Dioxide Level 30 Anion Gap 13 Blood Urea Nitrogen < 2 L Creatinine 0.58 Glucose Level 99 Calcium Level 8.7 Medications Medications Current Medications Ondansetron HCl (Zofran Inj) 4 mg Q6H PRN IV NAUSEA AND/OR VOMITING Last administered on 09/30/16 00:00; Admin Dose 4 MG; Start 09/27/16 at 23:00 Famotidine (Pepcid Iv) 20 mg Q12 IV Last administered on 10/03/16 09:23; Admin Dose 20 MG; Start 09/27/16 at 23:00 Hydralazine HCl (Apresoline) 10 mg Q6H PRN IV SbP>160; Start 09/28/16 at 11:00 Bisacodyl (Dulcolax Supp) 10 mg DAILY PRN [place] CONSTIPATION Last administered on 09/30/16 11:19; Admin Dose 10 MG; Start 09/30/16 at 10:30 Morphine Sulfate (morphine) 2 mg Q4H PRN IV pain Last administered on 09/30/16 15:15; Admin Dose 2 MG; Start 09/30/16 at 15:00 Senna (Senokot) 2 tab BID PO Last administered on 10/02/16 20:39; Admin Dose 2 TAB; Start 09/30/16 at 15:27 Lactulose (Enulose) 20 gm Q6H PRN PO CONSTIPATION; Start 09/30/16 at 15:30 Magnesium Hydroxide (Milk Of Mag) 30 ml BID PRN PO CONSTIPATION; Start 09/30/16 at 15:30 Hydromorphone HCl (Dilaudid) 0.5 mg Q4H PRN IV PAIN Last administered on 01:44; Admin Dose 0.5 MG; Start 09/30/16 at 15:30 Zolpidem Tartrate (Ambien) 5 mg HS PRN PO INSOMNIA; Start 10/02/16 at 11:30 Acetaminophen/ Hydrocodone Bitart ([place] (5/325)) 1 tab Q4H PRN PO pain; Start 10/03/16 at 12:30 CHANTE ESTRADA October 03, 2016 15:23
[2016-10-03 16:53] LABS: ALBUMIN 3.5 g/dl (3.3-4.9)
[2016-10-03 16:54] LABS: POTASSIUM 3.5 mmol/L (3.5-5.1)
[2016-10-03 16:56] LABS: ALBUMIN/GLOBULIN RATIO 0.97; BILIRUBIN,INDIRECT 0.4 mg/dl (0-1.1); BILIRUBIN,TOTAL 0.4 mg/dl (0.2-1.3); CALCIUM 9.3 mg/dl (8.4-10.2); CREATININE 0.58 mg/dl (0.44-1.00); TOTAL PROTEIN 7.1 g/dl (6.1-8.1)
[2016-10-03] MEDS: HYDROCODONE/APAP (5/325) TAB PO PRN (18:48)
[2016-10-03 19:44] VITALS: BP 133/84; RESP 20
[2016-10-04] MEDS: HYDROCODONE/APAP (5/325) TAB PO PRN (04:18)
[2016-10-04 05:48] LABS: ADD SCAN DIFF NO
[2016-10-04 05:59] LABS: BASOPHILS % 0.2 % (0.0-2.0); EOSINOPHILS # 0.1 10^3/ul (0.0-0.5); HEMATOCRIT 31.5 % (37.0-47.0); HEMOGLOBIN 10.6 g/dl (12.0-16.0); LYMPHOCYTES # 1.6 10^3/ul (0.8-2.9); LYMPHOCYTES % 15.5 % (15.0-51.0); MEAN CORPUSCULAR HEMOGLOBIN 29.6 pg (29.0-33.0); MEAN CORPUSCULAR HGB CONC 33.7 g/dl (32.0-37.0); MEAN PLATELET VOLUME 9.5 fl (7.4-10.4); MONOCYTE # 0.9 10^3/ul (0.3-0.9); MONOCYTES % 8.5 % (0.0-11.0); NEUTROPHIL # 7.6 10^3/ul (1.6-7.5); NEUTROPHILS % 74.4 % (39.0-77.0); PLATELET COUNT 325 10^3/UL (140-415); RED BLOOD COUNT 3.58 10^6/ul (4.20-5.40); RED CELL DISTRIBUTION WIDTH 12.3 % (11.5-14.5); WHITE BLOOD COUNT 10.2 10^3/ul (4.8-10.8)
[2016-10-04 06:55] LABS: POTASSIUM 3.2 mmol/L (3.5-5.1)
[2016-10-04 06:58] LABS: CALCIUM 8.6 mg/dl (8.4-10.2); CREATININE 0.56 mg/dl (0.44-1.00)
[2016-10-04] MEDS: SENNA TAB PO SCH (09:00)
[2016-10-04] MEDS: FAMOTIDINE 20 MG INJ IV SCH (09:18)
--- NOTE | 2016-10-04 12:09 | CONS ---
Date/Time of Note Date/Time of Note DATE: 10/04/16 TIME: 12:09 Assessment/Plan Assessment/Plan Chief Complaint/Hosp Course Ms. Abdiaziz Verduzco is a 51-year-old woman that presented in the emergency room secondary to complaints of intense epigastric and right upper quadrant pain with nausea and nonbloody bilious vomiting that started on . Patient reports previous episode in May but lasted under a day. Patient states symptoms started abruptly and reports 10 out of 10 abdominal pain. Patient denies fever, chills, alcohol consumption, sick contacts, travel outside the [place], and diarrhea. At bedside patient denies abdominal pain secondary to administration of pain medication. Patient also reports history of bilateral ovarian cyst and notes right ovarian cyst at 5 cm. She states she was awaiting evaluation for possible surgery with outpatient [employer]. Problems: Additional Assessment/Plan Abdominal pain/nausea/vomiting Pancreatitis, resolved Choledocholithiasis, ruled out Nausea and pain control Advance diet as tolerated MRCP: 1. Acute pancreatitis. 2. Gallstone seen on prior ultrasound are not visualized on the MRI. 3. Normal bile ducts. 4. Otherwise unremarkable study. ERCP not clinically indicated Monitor LFTs, amylase, lipase Sleep apnea Management per Primary Continue use of home CPAP Obesity Management per Primary Encourage weight loss Further recommendations depend on clinical course Patient seen in collaboration with Dr. Keyes Consultation Date/Type/Reason Admit Date/Time September 27, 2016 at 21:33 Initial Consult Date 09/28/16 Type of Consultation: Gastroenterology 24 HR Interval Summary Free Text/Dictation LFTs trending downward Denies abdominal pain, nausea, vomiting Feels better today and is ready to be discharged Stable from GI standpoint for discharge Exam/Review of Systems Vital Signs Vitals Vital Signs Date Time Temp Pulse Resp B/P Pulse Ox O2 Delivery O2 Flow Rate FiO2 10/03/16 19:44 98.8 90 20 133/84 93 09/30/16 21:26 Room Air Intake and Output 10/03/16 10/03/16 10/04/16 15:00 23:00 07:00 Intake Total 2880 ml 620 ml Output Total 3350 ml 1700 ml Balance -470 ml -1080 ml Exam Constitutional: alert, oriented, well developed Psych: nl mood/affect Head: normocephalic Eyes: EOMI, nl conjunctiva, nl lids ENMT: nl external ears & nose, nl lips & teeth, nl nasal mucosa & septum Respiratory: clear to auscultation, normal air movement Cardiovascular: regular rate and rhythm Gastrointestinal: soft, non-tender Musculoskeletal: nl extremities to inspection Neurological: BAGGAGE AGENT II-XII intact Results Result Diagram: 10/04/1615 10/04/16 0515 Results 24 hrs Laboratory Tests Test 10/03/16 16:00 10/04/16 05:15 Sodium Level 143 141 Potassium Level 3.5 3.2 L Chloride Level 100 100 Carbon Dioxide Level 29 29 Anion Gap 18 H 15 Blood Urea Nitrogen 3 L 2 L Creatinine 0.58 0.56 Glucose Level 107 100 Calcium Level 9.3 8.6 Total Bilirubin 0.4 Direct Bilirubin 0.00 Indirect Bilirubin 0.4 Aspartate Amino Transf (AST/SGOT) 28 Alanine Aminotransferase (ALT/SGPT) 94 H Alkaline Phosphatase 132 H Total Protein 7.1 Albumin 3.5 Globulin 3.60 H Albumin/Globulin Ratio 0.97 Lipase 99 White Blood Count 10.2 Red Blood Count 3.58 L Hemoglobin 10.6 L Hematocrit 31.5 L Mean Corpuscular Volume 88.0 Mean Corpuscular Hemoglobin 29.6 Mean Corpuscular Hemoglobin Concent 33.7 Red Cell Distribution Width 12.3 Platelet Count 325 Mean Platelet Volume 9.5 Neutrophils % 74.4 Lymphocytes % 15.5 Monocytes % 8.5 Eosinophils % 1.0 Basophils % 0.2 Nucleated Red Blood Cells % 0.0 Neutrophils # 7.6 H Lymphocytes # 1.6 Monocytes # 0.9 Eosinophils # 0.1 Basophils # 0.0 Nucleated Red Blood Cells # 0.0 Medications Medications Current Medications Ondansetron HCl (Zofran Inj) 4 mg Q6H PRN IV NAUSEA AND/OR VOMITING Last administered on 09/30/16 00:00; Admin Dose 4 MG; Start 09/27/16 at 23:00 Famotidine (Pepcid Iv) 20 mg Q12 IV Last administered on 10/04/16 09:18; Admin Dose 20 MG; Start 09/27/16 at 23:00 Hydralazine HCl (Apresoline) 10 mg Q6H PRN IV SbP>160; Start 09/28/16 at 11:00 Bisacodyl (Dulcolax Supp) 10 mg DAILY PRN [place] CONSTIPATION Last administered on 09/30/16 11:19; Admin Dose 10 MG; Start 09/30/16 at 10:30 Morphine Sulfate (morphine) 2 mg Q4H PRN IV pain Last administered on 09/30/16 15:15; Admin Dose 2 MG; Start 09/30/16 at 15:00 Senna (Senokot) 2 tab BID PO Last administered on 10/02/16 20:39; Admin Dose 2 TAB; Start 09/30/16 at 15:27 Lactulose (Enulose) 20 gm Q6H PRN PO CONSTIPATION; Start 09/30/16 at 15:30 Magnesium Hydroxide (Milk Of Mag) 30 ml BID PRN PO CONSTIPATION; Start 09/30/16 at 15:30 Hydromorphone HCl (Dilaudid) 0.5 mg Q4H PRN IV PAIN Last administered on 01:44; Admin Dose 0.5 MG; Start 09/30/16 at 15:30 Zolpidem Tartrate (Ambien) 5 mg HS PRN PO INSOMNIA; Start 10/02/16 at 11:30 Acetaminophen/ Hydrocodone Bitart ([place] (5/325)) 1 tab Q4H PRN PO pain Last administered on 10/04/16 04:18; Admin Dose 1 TAB; Start 10/03/16 at 12:30 NICKO RODRIGEZ October 04, 2016 12:09
[2016-10-04 12:32] LABS: ALBUMIN 3.2 g/dl (3.3-4.9)
[2016-10-04 12:34] LABS: BILIRUBIN,INDIRECT 0.3 mg/dl (0-1.1); BILIRUBIN,TOTAL 0.3 mg/dl (0.2-1.3)
[2016-10-04 12:35] LABS: TOTAL PROTEIN 6.2 g/dl (6.1-8.1)
[2016-10-04] MEDS ORDERED: POTASSIUM CHLORIDE (SR) 20 MEQ TAB PO STA (14:02)
--- NOTE | 2016-10-04 14:02 | PDOCDIS ---
Discharge Instructions DIAGNOSIS Discharge Diagnosis: 1. Acute pancreatitis. [place] 3. Transaminitis CONDITION Patient Condition: Stable HOME CARE INSTRUCTIONS: Diet Instructions: Low Fat /CholesterolSpecial Diet: Soft FOLLOW UP/APPOINTMENTS Appointments 1. Follow up with your primary care provider in 1-2 weeks CHANTE ESTRADA October 04, 2016 14:02
== END 2016-10-04 16:20 | disposition home or self-care (01) | DRG 439 ==
LOC: FTE 17:45 → MS2 21:33
PROVIDERS: ADMIT Family Medicine; ATTEND Family Medicine
DX: K85.10 Biliary acute pancreatitis without necrosis or infection (principal); B17.9 Acute viral hepatitis, unspecified; G47.33 Obstructive sleep apnea (adult) (pediatric); E80.6 Other disorders of bilirubin metabolism
CPT/HCPCS: 36415; 74176; 74181; 76705; 80048; 80053; 80061; 80076; 81001; 81003; 82150; 82247; 82248; 83036; 83690; 83735; 84100; 84439; 84443; 84484; 85025; 86021; 86038; 86255; 86704; 86709; 86803; 87340; 96374; 96375; 96376; J1170; J1885; J2270; J2405; J3475; J3480; J7030